=== PATIENT | male | born 1945 | race Caucasian/White ===

== ENCOUNTER → 2021-01-02 10:49 | Outpatient (BNVA) | payer MEDICARE, SELFPAY | PROVIDERS: Visit Provider Family Medicine | DX: E11.9 Type 2 diabetes mellitus without complications (principal); I50.9 Heart failure, unspecified; I10 Essential (primary) hypertension; R60.0 Localized edema; Z13.220 Encounter for screening for lipoid disorders; Z13.6 Encounter for screening for cardiovascular disorders; J44.9 Chronic obstructive pulmonary disease, unspecified | CPT/HCPCS: 80053; 80061; 83036; 83880; 85025 ==

== ENCOUNTER 2021-01-08 06:00 | Outpatient (RCR) | payer MEDICARE, SELFPAY | END 2021-01-24 23:59 | disposition home or self-care (01) | LOC: MOT 06:00 | PROVIDERS: Referring Provider Family Medicine; Visit Provider Family Medicine | DX: I50.9 Heart failure, unspecified (principal); R60.0 Localized edema | CPT/HCPCS: 97140; 97166 ==

== ENCOUNTER 2021-01-25 06:00 | Outpatient (RCR) | payer MEDICARE, SELFPAY | END 2021-02-24 23:59 | disposition home or self-care (01) | LOC: MOT 06:00 | PROVIDERS: Referring Provider Family Medicine; Visit Provider Family Medicine | DX: I50.9 Heart failure, unspecified (principal); R60.0 Localized edema | CPT/HCPCS: 97140 ==

== ENCOUNTER 2021-02-25 06:00 | Outpatient (RCR) | payer MEDICARE, SELFPAY | END 2021-03-26 23:59 | disposition home or self-care (01) | LOC: MOT 06:00 | PROVIDERS: Referring Provider Family Medicine; Visit Provider Family Medicine | DX: I50.9 Heart failure, unspecified (principal); R60.0 Localized edema | CPT/HCPCS: 97140 ==

== ENCOUNTER → 2021-04-02 13:40 | Outpatient (BNVA) | payer MEDICARE, SELFPAY | PROVIDERS: PCP Family Medicine; Visit Provider Family Medicine | DX: E11.59 Type 2 diabetes mellitus with other circulatory complications (principal); I10 Essential (primary) hypertension; I50.9 Heart failure, unspecified; N18.31 Chronic kidney disease, stage 3a; Z68.41 Body mass index [BMI] 40.0-44.9, adult | CPT/HCPCS: 80053; 83036 ==

== ENCOUNTER → 2021-05-08 09:59 | Outpatient (BNVA) | payer MEDICARE, SELFPAY | PROVIDERS: PCP Family Medicine; Visit Provider Internal Medicine Cardiovascular Disease | DX: R06.00 Dyspnea, unspecified (principal); E78.1 Pure hyperglyceridemia; N18.31 Chronic kidney disease, stage 3a; E11.59 Type 2 diabetes mellitus with other circulatory complications; I13.0 Hypertensive heart and chronic kidney disease with heart failure and stage 1 through stage 4 chronic kidney disease, or unspecified chronic kidney disease; E11.22 Type 2 diabetes mellitus with diabetic chronic kidney disease; I50.9 Heart failure, unspecified | CPT/HCPCS: 80053; 80061; 83735; 83880 ==

== ENCOUNTER 2021-06-12 09:54 | Outpatient (CLI) | payer MEDICARE, SELFPAY ==
--- NOTE | 2021-06-12 10:03 | ECG_ITS ---
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 Interpretive Statements SinusNAME OF STUDY: LEXISCAN SESTAMIBI STRESS TEST INDICATION: Chest Pain; Shortness of Breath PROCEDURE: At the baseline, the blood pressure was 123/79 mmHg with a heart rate of 72 bpm. The electrocardiogram showed rhythm with frequent PACs. Left axis deviation. Incomplete right bundle branch block. The Lexiscan was infused over a period of 20 seconds. A total of 0.4 milligrams of Lexiscan was infused. The stress phase was continued for a total of 5 minutes. Heart rate at the end of the stress phase was 86 bpm with a blood pressure of 134/70 mmHg. The EKG at the peak infusion revealed sinus rhythm with frequent PACs and runs of SVT. The study was terminated due to protocol completion. Sestamibi was injected 20 seconds after the Lexiscan infusion. Blood pressure at the end of the recovery phase was 119/71 mmHg with a heart rate of 89 beats per minute. CONCLUSION: 1. No significant EKG changes with the LexiScan infusion. 2. No LexiScan induced chest pain or cardiac arrhythmia. 3. Normal blood pressure and heart rate response. 4. Sestamibi/sestamibi perfusion scan pending; see separate report. Electronically Signed On 06-16-2021 13:00:24 CDT by Tiara Huertas M.D. [id number]
--- NOTE | 2021-06-12 10:03 | NMCV_ITS ---
NM sierra perf SPECT r/s* [id number] Ravi Mi Age: 75 Gender: M : 1945 Exam Date: 06/12/2021 11:15 Ordering Phys: Tiara Huertas MD ([email or web address]) Technologist: KAYKAY Nieves Exam Location: [facility] Indications: SHORTNESS OF BREATH STRESS TEST [facility] IMAGE PROTOCOL Rest/Stress 1 Lexiscan Day Radiopharmaceutical Dose (mCi) Administration Site Administered by Rest: Tc-99m 10.5 IV KAYKAY Nieves Sestamibi Stress:Tc-99m 33.0 IV KAYKAY Xiao Sestamibi Rest: 12-Jun-2021 60 Discovery 630 Stress: 12-Jun-2021 30 Discovery 630 0.4mg Lexiscan. Images obtained in supine and prone position. SPECT RESULTS Technical Quality: Excellent Raw Data Analysis: Normal Image Corrections: No attenuation or motion correction applied Summed Stress Score: 13 Summed Rest Score: 15 Summed Difference Score: 0 PERFUSION FINDINGS Large sized perfusion abnormality of severe severity of basal to apical inferior, mid inferolateral, apical lateral and apical septal wall on rest and supine stress images. There is somewhat improved tracer uptake in inferior and inferolateral mccall on stress of prone stress images. FUNCTIONAL RESULTS (calculated via Gated SPECT) Stress Image LV EF (%): 66 Stress EDV (mL):113 TID: 0.84 Stress ESV (mL):38 FUNCTIONAL FINDINGS: The left ventricle is normal in size. Transient Ischemia Dilatation of 0.84. There is normal left ventricular systolic function. The left ventricular ejection fraction is normal with a value of 66%. There is normal left ventricular wall thickening with no regional wall motion abnormality. Normal end-diastolic end-systolic volumes. IMPRESSIONS 1. Large sized fixed perfusion abnormality of severe severity of basal to apical inferior, mid inferolateral, apical lateral and apical septal mccall. 2. This is suggestive of old myocardial infarction in right coronary artery/circumflex artery territory with no significant rodrigo-infarct ischemia or attenuation artifact. 3. Overall left ventricular systolic function is normal without regional wall motion abnormalities. 4. The left ventricular ejection fraction is normal with a value of 66%. 5. No prior similar studies to compare. Tiara Huertas MD (Electronically Signed) Final Date: 16 June 2021 12:52 S
--- NOTE | 2021-06-12 10:08 | USCV_ITS ---
Ravi Mi Age: 75 Gender: M : 1945 Exam Date: 06/12/2021 10:44 Ordering Phys: Tiara Huertas MD ([email or web address]) Technologist: KISHOR [place] [facility] [place]: DYSPNEA BP: 140 / 90 HR: 87 Rhythm: Other Technical Quality: Technically difficult study MEASUREMENTS (Male / Female) Normal Values 2D ECHO LVOT Diameter 2.6 cm LV Ejection Fraction MOD 2C 41.3 % LV Ejection Fraction 2C AL 40.1 % LA Diameter 3.7 cm LA Width 3.9 cm LA Height 5.1 cm RA Width 4.2 cm RA Height 4.5 cm Aorta at Sinotubular Diameter 3.0 cm DOPPLER AV Peak Velocity 126.0 cm/s LVOT Peak Velocity 110.0 cm/s AV Area Cont Eq vti 4.1 cm squared AV Area Cont Eq pk 4.7 cm squared MV Area PHT 3.1 cm squared Mitral E to A Ratio 0.6 MV E' Velocity 24.5 cm/s Mitral E to MV E' Ratio 6.7 Mitral E to LV E' Lateral Ratio 5.7 Mitral E to LV E' Septal Ratio 8.2 TR Peak Velocity 118.0 cm/s TR Peak Gradient 5.6 mmHg RV Acceleration Time 0.1 s RV Ejection Time 0.2 s RV AcT/ET 0.3 FINDINGS Left Ventricle Possibly normal LV size and ejection fraction of around 55% (visual). Studies are suboptimal quality because of poor ultrasonic window.Grade I/IV diastolic dysfunction (abnormal relaxation filling pattern), normal to mildly elevated filling pressures. Right Ventricle Mildly dilated with a normal ejection fraction. Right Atrium Mildly dilated Left Atrium Possibly of normal size Mitral Valve No gross abnormalities noted Aortic Valve Thickened aortic valve. Tricuspid Valve No gross abnormalities noted Pulmonic Valve Pulmonic valve not well visualized. Pericardium Normal pericardium without effusion. Aorta Normal ascending aorta dimension. CONCLUSIONS Possibly normal LV size and ejection fraction of around 55% (visual). Grade I/IV diastolic dysfunction (abnormal relaxation filling pattern), normal to mildly elevated filling pressures. Thickened aortic valve. Mildly dilated right atrium and right ventricle. There is no pericardial effusion. Technically difficult study because of the poor ultrasonic window. Dr Nickolas Zeng MD FACC (Electronically Signed) Final Date: 13 June 2021 11:56 S
[2021-06-12 10:15] VITALS: BMI 43.4
[2021-06-12] MEDS: perflutren protein-a microsphr 0.22 mg/mL SDV 3 mL IV (11:36)
[2021-06-12] MEDS: regadenoson 0.4 Mg/5 ml Syringe IVP (11:48)
[2021-06-12 12:10] VITALS: BP 119/87; PULSE 72
== END 2021-06-12 09:55 | disposition home or self-care (01) ==
LOC: RAD 10:02 → CDL 10:02
PROVIDERS: PCP Family Medicine; Visit Provider Internal Medicine Cardiovascular Disease
DX: R06.00 Dyspnea, unspecified (principal); I50.9 Heart failure, unspecified; R07.9 Chest pain, unspecified; R06.02 Shortness of breath; R94.39 Abnormal result of other cardiovascular function study; I35.8 Other nonrheumatic aortic valve disorders
CPT/HCPCS: 78452; 93017; A9500; C8929; J2785; Q9956

== ENCOUNTER → 2021-12-04 09:22 | Outpatient (BNVA) | payer MEDICARE, SELFPAY | PROVIDERS: PCP Family Medicine; Visit Provider Family Medicine | DX: I10 Essential (primary) hypertension (principal); E11.59 Type 2 diabetes mellitus with other circulatory complications | CPT/HCPCS: 80053; 83036 ==

== ENCOUNTER → 2022-04-13 10:25 | Outpatient (BNVA) | payer MEDICARE, SELFPAY | PROVIDERS: PCP Family Medicine; Visit Provider Internal Medicine | DX: N18.9 Chronic kidney disease, unspecified (principal); E55.9 Vitamin D deficiency, unspecified | CPT/HCPCS: 80069; 82310; 82570; 82652; 83970; 84156; 85025 ==

== ENCOUNTER → 2022-05-06 09:41 | Outpatient (BNVA) | payer MEDICARE, SELFPAY | PROVIDERS: PCP Family Medicine; Visit Provider Family Medicine | DX: N18.31 Chronic kidney disease, stage 3a (principal); I10 Essential (primary) hypertension; E78.1 Pure hyperglyceridemia; E11.9 Type 2 diabetes mellitus without complications; E11.59 Type 2 diabetes mellitus with other circulatory complications; E11.40 Type 2 diabetes mellitus with diabetic neuropathy, unspecified; L84 Corns and callosities; I50.9 Heart failure, unspecified | CPT/HCPCS: 80048; 80061; 83036; 83735 ==

== ENCOUNTER → 2022-07-10 10:08 | Outpatient (BNVA) | payer MEDICARE, SELFPAY | PROVIDERS: PCP Family Medicine; Referring Provider Family Medicine; Visit Provider Podiatrist Foot & Ankle Surgery | DX: E11.40 Type 2 diabetes mellitus with diabetic neuropathy, unspecified (principal); E11.59 Type 2 diabetes mellitus with other circulatory complications; R60.0 Localized edema; B35.1 Tinea unguium; M20.41 Other hammer toe(s) (acquired), right foot; M20.42 Other hammer toe(s) (acquired), left foot; L60.1 Onycholysis | CPT/HCPCS: 11721; 99204 ==

== ENCOUNTER → 2022-07-28 11:31 | Outpatient (BNVA) | payer MEDICARE, SELFPAY | PROVIDERS: PCP Family Medicine; Visit Provider Family Medicine | DX: K92.1 Melena (principal); E11.9 Type 2 diabetes mellitus without complications; E11.59 Type 2 diabetes mellitus with other circulatory complications; I10 Essential (primary) hypertension; J44.9 Chronic obstructive pulmonary disease, unspecified; L98.429 Non-pressure chronic ulcer of back with unspecified severity; N18.31 Chronic kidney disease, stage 3a; I50.9 Heart failure, unspecified; A09 Infectious gastroenteritis and colitis, unspecified | CPT/HCPCS: 80053; 83036; 85025 ==

== ENCOUNTER → 2022-07-30 11:21 | Outpatient (BNVA) | payer MEDICARE, SELFPAY | PROVIDERS: PCP Family Medicine; Visit Provider Family Medicine | DX: K92.1 Melena (principal); A09 Infectious gastroenteritis and colitis, unspecified | CPT/HCPCS: 85018; 87493; 87506 ==

== ENCOUNTER → 2022-08-13 12:05 | Outpatient (BNVA) | payer MEDICARE, SELFPAY | PROVIDERS: PCP Family Medicine; Visit Provider Family Medicine | DX: E11.59 Type 2 diabetes mellitus with other circulatory complications (principal); N18.31 Chronic kidney disease, stage 3a; I10 Essential (primary) hypertension; A09 Infectious gastroenteritis and colitis, unspecified; I50.9 Heart failure, unspecified; Z09 Encounter for follow-up examination after completed treatment for conditions other than malignant neoplasm | CPT/HCPCS: 80048; 83735; 84100 ==

== ENCOUNTER → 2022-11-26 09:23 | Outpatient (BNVA) | payer MEDICARE, SELFPAY | PROVIDERS: PCP Family Medicine; Visit Provider Family Medicine | DX: E11.59 Type 2 diabetes mellitus with other circulatory complications (principal); E11.9 Type 2 diabetes mellitus without complications; I50.9 Heart failure, unspecified; I10 Essential (primary) hypertension; J44.9 Chronic obstructive pulmonary disease, unspecified; N18.31 Chronic kidney disease, stage 3a | CPT/HCPCS: 80053; 83036; 85025 ==

== ENCOUNTER → 2023-04-02 10:07 | Outpatient (BNVA) | payer MEDICARE, SELFPAY | PROVIDERS: PCP Family Medicine; Visit Provider Internal Medicine | DX: N18.9 Chronic kidney disease, unspecified (principal) | CPT/HCPCS: 80069; 82043; 82310; 83970; 85025 ==

== ENCOUNTER → 2023-05-03 10:35 | Outpatient (BNVA) | payer MEDICARE, SELFPAY | PROVIDERS: PCP Family Medicine; Visit Provider Family Medicine | DX: E78.1 Pure hyperglyceridemia (principal); E11.59 Type 2 diabetes mellitus with other circulatory complications | CPT/HCPCS: 80061; 83036 ==

== ENCOUNTER → 2023-06-07 15:41 | Outpatient (BNVA) | payer MEDICARE, SELFPAY | PROVIDERS: PCP Family Medicine; Visit Provider Family Medicine | DX: N18.9 Chronic kidney disease, unspecified (principal); R39.9 Unspecified symptoms and signs involving the genitourinary system | CPT/HCPCS: 81000; 87077; 87086; 87184 ==

== ENCOUNTER → 2023-06-17 10:19 | Outpatient (BNVA) | payer MEDICARE, SELFPAY | PROVIDERS: PCP Family Medicine; Referring Provider Internal Medicine Cardiovascular Disease; Visit Provider Internal Medicine Cardiovascular Disease | DX: I50.9 Heart failure, unspecified (principal); N18.9 Chronic kidney disease, unspecified; R06.02 Shortness of breath; R06.00 Dyspnea, unspecified; I13.0 Hypertensive heart and chronic kidney disease with heart failure and stage 1 through stage 4 chronic kidney disease, or unspecified chronic kidney disease | CPT/HCPCS: 80048; 83735; 83880 ==

== ENCOUNTER 2023-06-25 09:15 | Outpatient (CLI) | payer MEDICARE, SELFPAY ==
[2023-06-25 09:36] VITALS: BMI 40.4
--- NOTE | 2023-06-25 09:40 | ECG_ITS ---
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 Interpretive Statements NAME OF STUDY: LEXISCAN SESTAMIBI STRESS TEST INDICATION: Shortness of Breath on exertion PROCEDURE: At the baseline, the blood pressure was 137 over 74 mmHg, oxygen saturation 98% with a heart rate of 50 bpm. The electrocardiogram showed sinus rhythm with first-degree AV block with frequent PACs and right bundle branch block. The Lexiscan was infused over a period of 20 seconds. A total of 0.4 milligrams of Lexiscan was infused. The stress phase was continued for a total of 5 minutes. Heart rate at the end of the stress phase was 74 bpm with a blood pressure 130/66 mmHg. The EKG at the peak infusion revealed no significant ST-T wave change. Study was terminated due to protocol completion. Sestamibi was injected 20 seconds after the Lexiscan infusion. Blood pressure at the end of the recovery phase was 127/64 mmHg with a heart rate of 73 beats per minute. CONCLUSION: 1. No significant EKG changes with the LexiScan infusion. 2. No LexiScan induced chest pain or cardiac arrhythmia. 3. Normal blood pressure and heart rate response. 4. Sestamibi/sestamibi perfusion scan pending; see separate report. Electronically Signed On 07-05-2023 17:28:33 CDT by Tiara Huertas M.D. [id number]
--- NOTE | 2023-06-25 09:41 | NMCV_ITS ---
NM sierra perf SPECT r/s* [id number] Ravi Mi Age: 77 Gender: M : 1945 Exam Date: 06/25/2023 09:41 Ordering Phys: Tiara Huertas MD ([email or web address]) Technologist: KAYKAY Nieves Exam Location: [facility] Indications: SHORTNESS OF BREATH ON EXERTION, HEART FAILURE STRESS TEST Please see separate stress test report in [facility] for full findings IMAGE PROTOCOL Rest/Stress 1 Lexiscan Day Radiopharmaceutical Dose (mCi) Administration Site Administered by Rest: Tc-99m 10.7 IV KAYKAY High Sestamibi Stress:Tc-99m 33.0 IV KAYKAY Nieves Sestamibi Rest: 25-Jun-2023 60 Discovery 630 Stress: 25-Jun-2023 30 Discovery 630 0.4mg Lexiscan. Images obtained in supine and prone position. SPECT RESULTS Technical Quality: Excellent Raw Data Analysis: Normal Image Corrections: No attenuation or motion correction applied Summed Stress Score: 14 Summed Rest Score: 7 Summed Difference Score: 7 PERFUSION FINDINGS Medium to large sized perfusion abnormality of moderate severity of basal to apical inferior, basal to mid inferolateral, apical lateral and apical mccall with mild reversibility on stress images. FUNCTIONAL RESULTS (calculated via Gated SPECT) Stress Image LV EF (%): 52 Stress EDV (mL):127 TID: 1.02 Stress ESV (mL):61 FUNCTIONAL FINDINGS: The left ventricle is normal in size. Transient Ischemia Dilatation of 1. The left ventricular ejection fraction is low normal with a value of 52%. There is hypokinesis of mid to apical inferior and apical lateral mccall. IMPRESSIONS 1. Medium to large sized partially reversible perfusion abnormality of moderate severity of basal to apical inferior, basal to mid inferolateral, apical lateral and apical mccall. 2. This may represent old myocardial infarction in right coronary artery/circumflex artery territory with mild rodrigo-infarct ischemia. 3. The left ventricular ejection fraction is low normal with a value of 52%. 4. There is hypokinesis of mid to apical inferior and apical lateral mccall. 5. EKG portion of the study will be reported separately. Tiara Huertas MD (Electronically Signed) Final Date: 30 June 2023 14:00 S
[2023-06-25] MEDS: regadenoson 0.4 Mg/5 ml Syringe IVP (11:03)
[2023-06-25 12:42] VITALS: BP 127/64; PULSE 66
== END 2023-06-25 09:16 | disposition home or self-care (01) ==
PROVIDERS: PCP Family Medicine; Visit Provider Internal Medicine Cardiovascular Disease
DX: R06.02 Shortness of breath (principal)
CPT/HCPCS: 36415; 78452; 93017; 96374; A9500; J2785

== ENCOUNTER → 2023-08-16 08:51 | Outpatient (BNVA) | payer MEDICARE, SELFPAY | PROVIDERS: PCP Family Medicine; Visit Provider Family Medicine | DX: N18.9 Chronic kidney disease, unspecified (principal); E11.22 Type 2 diabetes mellitus with diabetic chronic kidney disease | CPT/HCPCS: 80048; 81003; 83036 ==

== ENCOUNTER → 2023-11-16 08:53 | Outpatient (BNVA) | payer MEDICARE, SELFPAY | PROVIDERS: PCP Family Medicine; Visit Provider Family Medicine | DX: R53.83 Other fatigue (principal); E11.40 Type 2 diabetes mellitus with diabetic neuropathy, unspecified; E11.22 Type 2 diabetes mellitus with diabetic chronic kidney disease; N18.31 Chronic kidney disease, stage 3a | CPT/HCPCS: 80053; 83036; 84443; 85025 ==

== ENCOUNTER → 2024-02-14 11:03 | Outpatient (BNVA) | payer MEDICARE, SELFPAY | PROVIDERS: PCP Family Medicine; Visit Provider Family Medicine | DX: I50.9 Heart failure, unspecified (principal); R05.9 Cough, unspecified; I10 Essential (primary) hypertension; E11.59 Type 2 diabetes mellitus with other circulatory complications; E11.9 Type 2 diabetes mellitus without complications; J98.11 Atelectasis | CPT/HCPCS: 71046; 80053; 83036; 83880 ==

== ENCOUNTER → 2024-05-01 10:09 | Outpatient (BNVA) | payer MEDICARE, SELFPAY | PROVIDERS: PCP Family Medicine; Visit Provider Family Medicine | DX: I10 Essential (primary) hypertension (principal); I50.9 Heart failure, unspecified; E78.1 Pure hyperglyceridemia; E11.59 Type 2 diabetes mellitus with other circulatory complications; E11.9 Type 2 diabetes mellitus without complications; N18.31 Chronic kidney disease, stage 3a; R06.00 Dyspnea, unspecified; N52.8 Other male erectile dysfunction | CPT/HCPCS: 80048; 80061; 83036 ==

== ENCOUNTER → 2024-06-29 09:54 | Outpatient (BNVA) | payer MEDICARE, SELFPAY | PROVIDERS: PCP Family Medicine; Referring Provider Nurse Practitioner; Visit Provider Nurse Practitioner | DX: S49.91XA Unspecified injury of right shoulder and upper arm, initial encounter (principal); M19.011 Primary osteoarthritis, right shoulder; W19.XXXA Unspecified fall, initial encounter | CPT/HCPCS: 73030 ==

== ENCOUNTER → 2024-07-03 13:23 | Outpatient (BNVA) | payer MEDICARE, SELFPAY | PROVIDERS: PCP Family Medicine; Visit Provider Nurse Practitioner | DX: S46.811A Strain of other muscles, fascia and tendons at shoulder and upper arm level, right arm, initial encounter (principal); W19.XXXA Unspecified fall, initial encounter; M19.011 Primary osteoarthritis, right shoulder | CPT/HCPCS: 73030; 99204 ==

== ENCOUNTER → 2024-10-26 08:50 | Outpatient (BNVA) | payer MEDICARE, SELFPAY | PROVIDERS: PCP Family Medicine; Visit Provider Family Medicine | DX: I10 Essential (primary) hypertension (principal); E11.59 Type 2 diabetes mellitus with other circulatory complications | CPT/HCPCS: 80053; 83036 ==

== ENCOUNTER 2024-11-24 11:51 | Inpatient (IN) | payer MEDICARE, SELFPAY ==
[2024-11-24] VITALS (9 sets, daily range): BP systolic 104–123; BP diastolic 51–76; PULSE 60–86; RESP 16–20; TEMP 36.5–36.6; O2SAT 93–98; BMI 40.4; BMI 37.5
--- NOTE | 2024-11-24 12:21 | ECG_ITS ---
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 Measurements Intervals [place] Rate: 83 P: 0 NV: 0 QRS: -79 QRSD: 170 T: 69 QT: 430 QTc: 507 Interpretive Statements ATRIAL FIBRILLATION WITH ABERRANT CONDUCTION OR VENTRICULAR PREMATURE COMPLEXES RIGHT BUNDLE BRANCH BLOCK [120+ ms QRS DURATION, UPRIGHT V1, 40+ ms S IN I/aVL/V4/V5/V6] LEFT ANTERIOR FASCICULAR BLOCK [QRS AXIS <= -45, QR IN I, RS IN II] POSSIBLE ANTERIOR MYOCARDIAL INFARCTION , OF INDETERMINATE AGE [30 ms Q WAVE IN V3/V4, OR R < 0.2 mV IN V4] No previous ECG available for comparison Electronically Signed On 11-25-2024 07:43:52 HOT MIX OPERATOR by Sony Montague M.D. [id number]
--- NOTE | 2024-11-24 12:21 | XR_ITS ---
WS: [id number] Portable AP upright chest, 11/24/2024 Clinical Data: chest pain Comparison: Two-view chest, 02/14/2024 Findings: No nodules, masses or effusions are seen. The heart is normal. The pulmonary vascularity is not increased. No pneumonia or pneumothorax is seen. The aortic arch and descending thoracic aorta show tortuosity. Monitor leads are on the chest wall. There is an electronic device overlying the left shoulder. XR/XR chest 1V portable [id number] Impression: Atherosclerosis.
[2024-11-24] MEDS: morphine 4 mg/mL SDV 1 mL 2 MG IVP (12:45)
[2024-11-24] MEDS: ondansetron 2 mg/ML SDV 2 mL 4 MG IVP (12:46)
[2024-11-24 13:44] LABS: Basophils % 0.3 %; Eosinophils # 0.1 10^3/uL (0.0-0.8); Eosinophils % 0.6 %; Hematocrit 44.5 % (37-53); Lymphocytes # 1.2 10^3/uL (0.8-4.8); Lymphocytes % 11.9 %; Mean Corpuscular HGB Conc 32.8 g/dL (30-55); Mean Corpuscular Hemoglobin 30.2 pg (27-33); Mean Corpuscular Volume 91.9 fl (82-101); Mean Platelet Volume 10.9 fL (7.4-10.4); Monocytes # 0.6 10^3/uL (0.2-0.9); Monocytes % 6.2 %; Neutrophils # 7.95 10^3/uL (1.8-7.7); Neutrophils % 80.6 %; Nucleated Red Blood Cells % 0 %; Platelet Count 181 10^3/cmm (157-399); Red Blood Count 4.84 10^6/uL (3.85-5.65); White Blood Count 9.86 10^3/uL (3.29-11.43)
--- NOTE | 2024-11-24 13:59 | ECG_ITS ---
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 Measurements Intervals [place] Rate: 73 P: -82 DE: 131 QRS: -61 QRSD: 153 T: 72 QT: 438 QTc: 485 Interpretive Statements ATRIAL FIBRILLATION WITH OCCASIONAL VENTRICULAR PREMATURE COMPLEXES WITH OCCASIONAL SUPRAVENTRICULAR PREMATURE COMPLEXES INTRAVENTRICULAR CONDUCTION DELAY [130+ ms QRS DURATION] INTERPRETATION BASED ON A DEFAULT AGE OF 40 YEARS Compared to ECG 11/24/2024 11:54:00 Junctional rhythm now present Intraventricular conduction delay now present Atrial fibrillation no longer present Aberrant conduction of supraventricular beat(s) no longer present Right bundle-branch block no longer present Left anterior fascicular block no longer present Myocardial infarct finding no longer present Electronically Signed On 11-25-2024 08:17:04 TRUCK 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 [id number]
--- NOTE | 2024-11-24 14:09 | PC.NURSE ---
PATIENT MONITOR ALARMED WITH A RUN OF V-TACH. IMMEDIATELY RAN EKG ON PATIENT. PATIENT REPORTS HAVING A MOMENT OF CHEST PAIN RIGHT BEFORE I ENTERED THE ROOM. PROVIDER NOTIFIED AND VERBALIZED UNDERSTANDING.
[2024-11-24 14:14] LABS: Troponin(5th) Baseline 53 ng/L (0-15)
[2024-11-24 14:19] LABS: Alanine Aminotransferase 11 U/L (0-41); Albumin Level 3.9 g/dL (3.5-5.2); Alkaline Phosphatase 143 U/L (40-130); Anion Gap 17.2 (5-19); Aspartate Amino Transferase 8 U/L (0-40); Blood Urea Nitrogen 60 mg/dL (8-23); Calcium 9.3 mg/dL (8.5-10.5); Carbon Dioxide 31 mmol/L (22-29); Chloride 89 mmol/L (98-107); Creatinine Clr Calc Pharmacy 38.8083; Globulin 2.9 g/dL (1.3-4.6); Glucose 320 mg/dL (65-115); NT Pro B Type Natriuretic Pept 414 pg/mL (0-450); Osmolality Calculated 307 mOsm/kg (285-295); Potassium 3.2 mmol/L (3.5-5.1); Sodium 134 mmol/L (136-145); Total Bilirubin 0.5 mg/dL (0.15-1.2); Total Protein 6.8 g/dL (6.6-8.7)
--- NOTE | 2024-11-24 15:17 | ED_ITS ---
HPI - Chest Pain 2 General: Chief Complaint: Chest Pain Stated Complaint: SOB, chest pain Time Seen by Provider: 11/24/24 11:52 History of Present Illness: This patient is an 79-year-old white male who presents to the emergency department stating that he has had chest pains for the past 3 hours. Currently rates the pain a 3 on a scale of 1-10. He does have shortness of breath but he states that is chronic secondary to chronic lung disease. He has not had any nausea, vomiting or diarrhea. Patient states he does have atrial fibrillation. States he is never been diagnosed with coronary artery disease. Associated symptoms: Reports dyspnea Related Data Home Medications ?Medication ?Instructions ?Recorded ?Confirmed aspirin 81 mg chewable tablet 81 mg PO DAILY 01/02/21 11/24/24 [id number] acid-vit 1 tab PO DAILY 1 11/24/24 K-lycop 400 mcg-20 mcg-370 mcg tablet (Men's 50 Plus Multivitamin) nitroglycerin 0.4 mg sublingual 0.4 mg sublingual Q5M PRN Chest 05/08/21 11/24/24 tablet Pain cholecalciferol (vitamin D3) 25 25 mcg PO DAILY 11/24/24 mcg (1,000 unit) tablet (Vitamin D3) furosemide 40 mg tablet See Rx Instructions .Route . COMPLEX 11/24/24 11/24/24 Previous Rx's ?Medication ?Instructions ?Recorded alcohol swabs 1 pad topical DIRECTED #2 00 10/26/24 blood sugar diagnostic (Blood #200 10/26/24 Glucose Test strips) blood-glucose meter (Blood Glucose #1 10/26/24 Monitoring kit) empagliflozin 25 mg tablet 25 mg PO DAILY 90 days #90 tabs 10/26/24 glimepiride 4 mg tablet 4 mg PO BID 90 days #180 tab s 10/26/24 hydrochlorothiazide 25 mg tablet 25 mg PO QAM 90 days #90 tabs 10/26/24 lancets #100 ea 10/26/24 metformin 1,000 mg tablet 1,000 mg PO BID 90 days #180 tabs 10/26/24 potassium chloride 8 mEq 8 meq PO DAILY 90 days #90 t abs 10/26/24 tablet,extended release Allergies Allergy/AdvReac Type Severity Reaction Status Date / Time prednisone Allergy unk Verified 10/26/24 08:33 Tetracyclines Allergy ALGY-Redness Verified 11/24/24 14:06 of Skin Review of Systems 2 General: Reports: 10 or more systems reviewed and unremarkable except in HPI and below Card: Reports: chest pain Resp: Reports: dyspnea PFSH ED 2 PFSH: Medical History Primary osteoarthritis, right shoulder Strain of right trapezius muscle Hyperlipidemia Erectile dysfunction Pedal edema CHF (congestive heart failure) Hypertension Metoprolol and lisinopril DC due to low BP. Asthma Type 2 diabetes mellitus Surgical History History of arthroscopic knee surgery Right History of eye surgery Social History Smoking and tobacco/nicotine status: never used tobacco/nicotine Alcohol intake: never Substance/Drug Use: never Physical Exam 2 Const: COMMON NORMALS: no acute distress, patient oriented x3 and no limitations GENERAL APPEARANCE: cooperative and comfortable HENMT: COMMON NORMALS: normocephalic, atraumatic, Normal nasal mucous membranes and turbinates present, moist oral mucous membranes and oropharynx normal HEAD & SCALP: normal to inspection, normocephalic and atraumatic F VINCENZO & SINUS: normal facial exam NOSE: Normal nasal mucous membranes and turbinates present Eye: COMMON NORMALS: Equal, round and reactive pupils present, EOMs intact bilaterally and conjunctivae normal GENERAL EYE: appearance normal, both eyes and all related structures CONJUNCTIVA: Yes conjunctivae normal PUPIL: Yes Equal, round and reactive pupils present Neck/C-Spine: COMMON NORMALS: supple and no JVD Chest: COMMONS NORMALS: normal inspection of the chest Resp: COMMON NORMALS: normal respiratory effort and clear to auscultation bilaterally AUSCULTATION: clear to auscultation bilaterally Cardio: COMMON NORMALS: no JVD and regular rate RATE: regular rate R HYTHM: abnormal rhythm GI: COMMON NORMALS: Normal to inspection, nondistended, normoactive bowel sounds present, Soft to palpation and non-tender AUSCULTATION: Yes normoactive bowel sounds PALPATION: Yes Soft to palpation : COMMON NORMALS: Yes no CVA tenderness BLADDER/KIDNEY EXAM: Yes no CVA tenderness Back/Pelvis: COMMON NORMALS: no CVA tenderness and thoracic and lumbar spine normal to inspection Extremity: COMMON NORMALS: normal to inspection Neuro: COMMON NORMALS: patient oriented x3 and CN's II-XII intact bilaterally Psych: COMMON NORMALS: mental status grossly normal, Normal thought process present and cooperative THOUGHT PROCESS: Normal thought process present Skin: COMMON NORMALS: no rashes or lesions noted, turgor normal and no jaundice GENERAL SKIN EXAM: no rashes or lesions noted and turgor normal Course 2 Vital Signs: Vital signs: Vital Signs Temperature 97.9 F 11/24/24 11:52 Pulse Rate 77 11/24/24 14:05 Respiratory Rate 16 11/24/24 12:45 Blood Pressure 108/67 11/24/24 14:05 Pulse Oximetry 93 11/24/24 14:05 Oxygen Delivery Me thod Room Air 11/24/24 14:05 MDM - Chest Pain Medical Decision Making EKG revealed atrial fibrillation with a ventricular rate of 83. There is a right bundle branch block. Chest x-ray was normal. CBC normal. CMP revealed a BUN of 60 creatinine of 2.1. Blood sugar was 320. Baseline troponin was 53. BNP was 414. The nurses notified me that the patient did have a short run of V. tach. It does appear the patient had 13 beats of V. tach. Patient was given morphine initially for his pain. He states he tried nitroglycerin at home. The morphine did help. He continues to have some mild discomfort. I discussed this case with Dr. Stephenson, hospitalist. He does want the patient in the cardiac stepdown unit. He would like us to start heparin. He would like me to consult cardiology. I then discussed the case with Dr. Sanchez. Patient will be transferred to the floor shortly. He is stable. Lab Data 11/24/24 13:34 11/24/24 13:34 Radiology Impressions Chest X-Ray 11/24/24 12:21 Impression: Atherosclerosis. Laboratory Results WBC 9.86 10^3/uL (3.29-11.43) 11/24/24 13:34 RBC 4.84 10^6/uL (3.85-5.65) 11/24/24 13:34 Hgb 14.60 g/dL (11.27-16.99) 11/24/24 13:34 Hct 44.5 % (37-53) 11/24/24 13:34 MCV 91.9 fl (82-101) 11/24/24 13:34 MCH 30.2 pg (27-33) 11/24/24 13:34 MCHC 32.8 g/dL (30-55) 11/24/24 13:34 RDW 13.0 % (12.1-15.1) 11/24/24 13:34 Plt Count 181 10^3/cmm (157-399) 11/24/24 13:34 MPV 10.9 fL (7.4-10.4) H 11/24/24 13:34 Neut % (Auto) 80.6 % 11/24/24 13:34 Lymph % (Auto) 11.9 % 11/24/24 13:34 Marion % (Auto) 6.2 % 11/24/24 13:34 Eos % (Auto) 0.6 % 11/24/24 13:34 Baso % (Auto) 0.3 % 11/24/24 13:34 Neut # (Auto) 7.95 10^3/uL (1.8-7.7) H 11/24/24 13:34 Lymph # (Auto) 1.2 10^3/uL (0.8-4.8) 11/24/24 13:34 Marion # (Auto) 0.6 10^3/uL (0.2-0.9) 11/24/24 13:34 Eos # (Auto) 0.1 10^3/uL (0.0-0.8) 11/24/24 13:34 Baso # (Auto) 0.0 10^3/uL (0.0-0.1) 11/24/24 13:34 Nucleated RBC % (auto) 0 % 11/24/24 13:34 Nucleated RBCs # 0.0 /100WBC 11/24/24 13:34 Sodium 134 mmol/L (136-145) L 11/24/24 13:34 Potassium 3.2 mmol/L (3.5-5.1) L 11/24/24 13:34 Chloride 89 mmol/L (98-107) L 11/24/24 13:34 Carbon Dioxide 31 mmol/L (22-29) H 11/24/24 13:34 Anion Gap 17.2 (5-19) 11/24/24 13:34 BUN 60 mg/dL (8-23) H 11/24/24 13:34 Creatinine 2.1 mg/dL (0.7-1.2) H 11/24/24 13:34 GFR Calculation Not Reportable 11/24/24 13:34 Glucose 320 mg/dL (65-115) H 11/24/24 13:34 Calculated Osmolality 307 mOsm/kg (285-295) H 11/24/24 13:34 Calcium 9.3 mg/dL (8.5-10.5) 11/24/24 13:34 Total Bilirubin 0.5 mg/dL (0.15-1.2) 11/24/24 13:34 AST 8 U/L (0-40) 11/24/24 13:34 ALT 11 U/L (0-41) 11/24/24 13:34 Alkaline Phosphatase 143 U/L (40-130) H 11/24/24 13:34 Troponin T Baseline 53 ng/L (0-15) H 11/24/24 13:34 NT-Pro-B Natriuret Pep 414 pg/mL (0-450) 11/24/24 13:34 Total Protein 6.8 g/dL (6.6-8.7) 11/24/24 13:34 Albumin 3.9 g/dL (3.5-5.2) 11/24/24 13:34 Globulin 2.9 g/dL (1.3-4.6) 11/24/24 13:34 All radiology interpretation(s) finalized by discharge Discharge Plan Discharge Patient Disposition: Admitted As Inpatient Clinical Impression: Chest pain Qualifiers: Chest pain type: unspecified Qualified Code(s): R07.9 - Chest pain, unspecified Condition: Stable Coding Level of Care Code ED Oriental Medicine Practitioner for Belgica Fisher
--- NOTE | 2024-11-24 15:28 | USCV_ITS ---
Ravi Mi Age: 79 Gender: M : 1945 Exam Date: 11/24/2024 17:48 Ordering Phys: Hemant Stephenson MD Technologist: Kareem Daly Exam Location: [facility] [place] Indication: sob BP: 108 / 67 HR: 62 Rhythm: Sinus Technical Quality: Adequate MEASUREMENTS (Male / Female) Normal Values 2D ECHO LV Diastolic Diameter PLAX 5.6 cm 4.2 - 5.9 / 3.9 - 5.3 cm IVS Diastolic Thickness 1.3 cm 0.6 - 1.0 / 0.6 - 0.9 cm IVS Systolic Thickness 1.4 cm LVPW Diastolic Thickness 1.9 cm 0.6 - 1.0 / 0.6 - 0.9 cm LVPW Systolic Thickness 1.9 cm LVOT Diameter 2.6 cm LV Ejection Fraction 2D Teich 50.8 % LV Ejection Fraction MOD 4C 41.3 % LV Ejection Fraction MOD 2C 46.8 % LV Ejection Fraction 2C AL 50.2 % LA Diameter 3.8 cm RA Systolic Volume 4C AL 51.0 ml RA Systolic Volume 4C MOD 52.9 ml LA Sys Volume AL 56.7 cm cubed LA Sys Volume Index AL 21.6 cm cubed/m squared Aorta at Sinotubular Diameter 2.6 cm IVC Diameter 1.8 cm M-MODE LA Ao Ratio MM 1.1 AV Cusp Separation MM 1.6 cm DOPPLER AV Peak Velocity 127.0 cm/s LVOT Peak Velocity 94.0 cm/s AV Area Cont Eq vti 3.8 cm squared AV Area Cont Eq pk 3.9 cm squared MV Peak Velocity 80.2 cm/s MV Area PHT 1.9 cm squared Mitral E to A Ratio 0.5 TV Peak Velocity 180.0 cm/s TR Peak Velocity 210.0 cm/s TR Peak Gradient 17.6 mmHg TR Mean Velocity 179.0 cm/s TR Mean Gradient 12.9 mmHg TR Velocity Time Integral 65.9 cm PV Peak Velocity 104.0 cm/s RV Ejection Time 0.2 s FINDINGS Left Ventricle Mild global hypokinesis. LV systolic function mildly reduced with LVEF 45-50%. Grade II diastolic dysfunction. Right Ventricle Normal right ventricular size and systolic function. Right Atrium Normal right atrial size. Left Atrium Normal left atrial size. Mitral Valve Structurally normal mitral valve. Trace mitral valve regurgitation. Aortic Valve Thickened aortic valve. No aortic valve stenosis. Tricuspid Valve Structurally normal tricuspid valve. Trace tricuspid valve regurgitation. TVPG 17 mmHg. Pulmonic Valve Pulmonic valve not well visualized. Trace pulmonary valve regurgitation. Pericardium No pericardial effusion. Aorta Normal size aortic root and proximal ascending aorta. IVC Normal IVC dimension with < 50% respiratory change of the inferior vena cava. CONCLUSIONS Mild global hypokinesis. Mildly reduced LV systolic function, LVEF estimated 47%. Mild mitral regurgitation. No other significant valvular abnormality noted. Normal size RV and RV systolic function. Normal RV and pulmonary pressures. Poncho Sanchez MD (Electronically Signed) Final Date: 25 November 2024 09:12 S
[2024-11-24] MEDS: heparin 5,000 unit/mL INJ 1 mL IVP (15:34)
[2024-11-24] MEDS: heparin drip 25,000 UNIT/500 ML PREMIX 38 UNIT IV (15:35)
--- NOTE | 2024-11-24 15:43 | P.HP_ITS ---
Providers/Chief Complaint 2 Primary Care Provider: Audra Hillman MD Chief Complaint: SOB, chest pain History of Present Illness Ravi Mi is a 79 year old male with a past medical history of type 2 diabetes, history of CAD, hypertension hyperlipidemia who presents [facility] for chest pain. Patient advises that he typically ambulates with a cane, denies any shortness of breath, no lower extremity edema, he reports that today he developed substernal chest pain, no diaphoresis, no nausea, no vomiting, it radiated to the back, no lightheadedness, no dizziness, currently chest pain 3 out of 10, patient had a nonsustained V. tach episode in the emergency room, relatively asymptomatic, Review of Systems 2 Const: Denies: fever(s) or chills Card: Reports: chest pain Resp: Denies: dyspnea GI: Denies: abdominal pain Medications/Allergies Home Medications ?Medication ?Instructions ?Recorded ?Confirmed ?Last Taken ?Type aspirin 81 mg chewable tablet 81 mg PO DAILY 01/02/21 11/24/24 11/24/24 History kalncdiouwqm-kne-ithav acid-vit 1 tab PO DAILY 1 11/24/24 11/24/24 History K-lycop 400 mcg-20 mcg-370 mcg tablet (Men's 50 Plus Multivitamin) nitroglycerin 0.4 mg sublingual 0.4 mg sublingual Q5M PRN Chest 05/08/21 11/24/24 Unknown History tablet Pain alcohol swabs 1 pad topical DIRECTED #2 00 ea 10/26/24 11/24/24 11/24/24 Rx blood sugar diagnostic (Blood #200 ea 10/26/24 5 Unknown Rx Glucose Test strips) blood-glucose meter (Blood Glucose #1 10/26/2410/29 Unknown Rx Monitoring kit) empagliflozin 25 mg tablet 25 mg PO DAILY 90 days #90 tabs 10/26/24 11/24/24 11/24/24 Rx glimepiride 4 mg tablet 4 mg PO BID 90 days #180 tab s 10/26/24 11/24/24 11/24/24 Rx hydrochlorothiazide 25 mg tablet 25 mg PO QAM 90 days #90 tabs 10/26/24 11/24/24 11/24/24 Rx lancets #100 ea 10/26/24 11/24/24 Un known Rx metformin 1,000 mg tablet 1,000 mg PO BID 90 days #180 tabs 10/26/24 11/24/24 11/24/24 Rx potassium chloride 8 mEq 8 meq PO DAILY 90 days #90 t abs 10/26/24 11/24/24 11/24/24 Rx tablet,extended release cholecalciferol (vitamin D3) 25 25 mcg PO DAILY 11/24/24 11/24/24 History mcg (1,000 unit) tablet (Vitamin D3) furosemide 40 mg tablet See Rx Instructions .Route . COMPLEX 11/24/24 11/24/24 11/24/24 History Allergies Allergy/AdvReac Type Severity Reaction Status Date / Time prednisone Allergy unk Verified 10/26/24 08:33 Tetracyclines Allergy ALGY-Redness Verified 11/24/24 14:06 of Skin PFSH Acute 2 PFSH: Medical History Primary osteoarthritis, right shoulder Strain of right trapezius muscle Hyperlipidemia Erectile dysfunction Pedal edema CHF (congestive heart failure) Hypertension Metoprolol and lisinopril DC due to low BP. Asthma Type 2 diabetes mellitus Surgical History History of arthroscopic knee surgery Right History of eye surgery Social History Smoking and tobacco/nicotine status: never used tobacco/nicotine Alcohol intake: never Substance/Drug Use: never Vitals/I&O/Wt Last Vital Signs Temp 97.9 F 11/24/24 11:52 Pulse 72 11/24/24 15:39 Resp 16 11/24/24 12:45 BP 104/51 11/24/24 15:39 Pulse Ox 97 11/24/24 15:39 O2 Del Method Room Air 11/24/24 15:39 11/24/24 11/24/24 11/24/24 06:59 14:59 22:59 Intake Total 250 / 250 Balance 250 / 250 Weight last 48 hrs Weight 131.542 kg Physical Exam 2 Const: COMMON NORMALS: no acute distress and patient oriented x3 Eye: COMMON NORMALS: Equal, round and reactive pupils present Resp: COMMON NORMALS: normal respiratory effort, No retractions, No use of accessory muscles and clear to auscultation bilaterally AUSCULTATION: clear to auscultation bilaterally Cardio: COMMON NORMALS: no JVD, regular rate, regular rhythm, S1 normal heart sound present and S2 normal heart sound present RATE: regular rate RHYTHM: regular rhythm HEART SOUNDS: S1 normal heart sound present and S2 normal heart sound present GI: COMMON NORMALS: Normal to inspection, nondistended, normoactive bowel sounds present, Soft to palpation and non-tender Extremity: COMMON NORMALS: no pedal edema Neuro: COMMON NORMALS: patient oriented x3, CN's II-XII intact bilaterally and moves all extremities Psych: COMMON NORMALS: mental status grossly normal Data 11/24/24 13:34 11/24/24 13:34 A&P Assessment and plan (1) Hypertension: Qualifiers: Hypertension type: essential hypertension Qualified Code(s): I10 - Essential (primary) hypertension (2) CHF (congestive heart failure): Qualifiers: Heart failure type: other Qualified Code(s): I50.9 - Heart failure, unspecified (3) Chest pain: Qualifiers: Chest pain type: unspecified Qualified Code(s): R07.9 - Chest pain, unspecified (4) Hyperlipidemia: Qualifiers: Hyperlipidemia type: pure hypertriglyceridemia Qualified Code(s): E78.1 - Pure hyperglyceridemia (5) Type 2 diabetes mellitus: Qualifiers: Diabetes mellitus intermediate insulin use: without intermodal truck driver use Diabetes mellitus complication status: with circulatory complication Diabetes mellitus complication detail: with other circulatory complications Qualified Code(s): E 11.59 - Type 2 diabetes mellitus with other circulatory complications (6) CKD (chronic kidney disease): Qualifiers: Chronic kidney disease stage: stage 3 (moderate) Chronic kidney disease stage 3 subtype: stage 3a (GFR 45-59) Qualified Code(s): N18.31 - Chronic kidney disease, stage 3a (7) NSTEMI (non-ST elevated myocardial infarction): (8) COELTTE (acute kidney injury): Plan NSTEMI, chest pain Cardiac stress test IMPRESSIONS 1. Medium to large sized partially reversible perfusion abnormality of moderate severity of basal to apical inferior, basal to mid inferolateral, apical lateral and apical mccall. 2. This may represent old myocardial infarction in right coronary artery/circumflex artery territory with mild rodrigo-infarct ischemia. 3. The left ventricular ejection fraction is low normal with a value of 52%. 4. There is hypokinesis of mid to apical inferior and apical lateral mccall. 5. EKG portion of the study will be reported separately. Plan -So EKGs, serial troponins, telemetry monitoring -Cardiac echo -Aspirin, statin -Cardiology consulted by emergency room COLETTE on CKD, monitor Type 2 diabetes mellitus, low-dose sliding scale Full code Lovenox for DVT prophylaxis PDMP PDMP Reviewed: Not Reviewed Attestations 2 Medical Necessity Statement*: Patient requires hospitalization for chest pain, NSTEMI, inpatient, greater than 2 midnights Diagnoses Essential hypertension I10 Hypertension type: essential hypertension Other congestive heart failure I50.9 Heart failure type: other Chest pain R07.9 Chest pain type: unspecified Pure hypertriglyceridemia E78.1 Hyperlipidemia type: pure hypertriglyceridemia Type 2 diabetes mellitus with other circulatory complication, without long-term current use of insulin E11.59 Diabetes mellitus intermediate insulin use: without intermodal truck driver use Diabetes mellitus complication status: with circulatory complication Diabetes mellitus complication detail: with other circulatory complications Stage 3a chronic kidney disease N18.31 Chronic kidney disease stage: stage 3 (moderate) Chronic kidney disease stage 3 subtype: stage 3a (GFR 45-59) NSTEMI (non-ST elevated myocardial infarction) I21.4 COLETTE (acute kidney injury) N17.9
[2024-11-24 16:00] LABS: Troponin 5 2HR 52.68 ng/L (0-15)
[2024-11-24 16:02] LABS: Troponin 5 2HR Delta -0.32 ABS# (0-10)
[2024-11-24 16:07] LABS: Procalcitonin 0.37 ng/mL (0-0.5)
--- NOTE | 2024-11-24 18:03 | PM.CONSULT ---
Providers/Reason For Consult Consulting Physician/Specialty*: Hospitalist Reason for Consult*: Chest pain and elevated troponin Requesting Physician: Dr. Stephenson Attending Physician: Hemant Stephenson MD Primary Care Provider: Audra Hillman MD History of Present Illness History of Present Illness Ravi Mi is a 79 year old male with a known history of hypertension, diabetes and an abnormal stress test in the past with preserved LV systolic function, presented to the ER with atypical chest pain symptoms. EKG showed sinus rhythm with frequent PACs, intraventricular conduction delay. While he was in the ER he also had a run of 14-15 beats of nonsustained VT. Clinically patient remained stable and asymptomatic during this brief episode. Cardiac enzymes mildly elevated in the setting of worsening renal function from 1.6 to 2. Clinically no signs of heart failure symptoms. Overall patient is well stable hemodynamically. Review of Systems Narrative: Detailed 10 point systemic review unremarkable except for as mentioned above in the history of present illness. His overall ambulatory status is fairly limited. He does use cane for his ambulation to the bathroom. Medications/Allergies Home Medications ?Medication ?Instructions ?Recorded ?Confirmed ?Last Taken ?Type aspirin 81 mg chewable tablet 81 mg PO DAILY 01/02/21 11/24/24 11/24/24 History crkwexpwxbxm-fpz-qylnp acid-vit 1 tab PO DAILY 04/02/21 11/24/24 11/24/24 History K-lycop 400 mcg-20 mcg-370 mcg tablet (Men's 50 Plus Multivitamin) nitroglycerin 0.4 mg sublingual 0.4 mg sublingual Q5M PRN Chest 05/08/21 11/24/24 Unknown History tablet Pain alcohol swabs 1 pad topical DIRECTED #200 ea 10/26/24 11/24/24 11/24/24 Rx blood sugar diagnostic (Blood #200 ea 10/26/24 11/24/24 Unknown Rx Glucose Test strips) blood-glucose meter (Blood Glucose #1 ea 10/26/24 11/24/24 Unknown Rx Monitoring kit) empagliflozin 25 mg tablet 25 mg PO DAILY 90 days #90 tabs 10/26/24 11/24/24 11/24/24 Rx glimepiride 4 mg tablet 4 mg PO BID 90 days #180 tabs 10/26/24 11/24/24 11/24/24 Rx hydrochlorothiazide 25 mg tablet 25 mg PO QAM 90 days #90 tabs 10/26/24 11/24/24 11/24/24 Rx lancets #100 ea 10/26/24 11/24/24 Unknown Rx metformin 1,000 mg tablet 1,000 mg PO BID 90 days #180 tabs 10/26/24 11/24/24 11/24/24 Rx potassium chloride 8 mEq 8 meq PO DAILY 90 days #90 tabs 10/26/24 11/24/24 11/24/24 Rx tablet,extended release cholecalciferol (vitamin D3) 25 25 mcg PO DAILY 11/24/24 11/24/24 11/24/24 History mcg (1,000 unit) tablet (Vitamin D3) furosemide 40 mg tablet See Rx Instructions .Route .COMPLEX 11/24/24 11/24/24 11/24/24 History Allergies Allergy/AdvReac Type Severity Reaction Status Date / Time prednisone Allergy unk Verified 10/26/24 08:33 Tetracyclines Allergy ALGY-Redness Verified 11/24/24 14:06 of Skin Current Medications Generic Name Dose Route Start Last Admin Trade Name Freq PRN Reason Stop Dose Admin Heparin Sodium/Sodium Chloride 25,000 unit in 500 mls @ 0 mls/hr 11/24/24 15:15 11/24/24 15:35 Heparin Drip IV 14.44 unit/kg/hr CONT SHENA 38 mls/hr Administration Protocol Per Protocol PFSH Acute PFSH: Medical History Primary osteoarthritis, right shoulder Strain of right trapezius muscle Hyperlipidemia Erectile dysfunction Pedal edema CHF (congestive heart failure) Hypertension Metoprolol and lisinopril DC due to low BP. Asthma Type 2 diabetes mellitus Surgical History History of arthroscopic knee surgery Right History of eye surgery Social History Smoking and tobacco/nicotine status: never used tobacco/nicotine Alcohol intake: never Substance/Drug Use: never Vitals/I&O/Wt Last Vital Signs Temp 97.9 F 11/24/24 11:52 Pulse 85 11/24/24 17:02 Resp 16 11/24/24 12:45 BP 119/73 11/24/24 17:02 Pulse Ox 93 11/24/24 17:02 O2 Del Method Room Air 11/24/24 17:02 11/24/24 11/24/24 11/24/24 06:59 14:59 22:59 Intake Total 250 / 250 Balance 250 / 250 Weight last 48 hrs Weight 290 lb Physical Exam Narrative: Patient laying comfortably on the stretcher in the ER. He is not in any respiratory distress at rest. Vitals are stable. Const: OTHER: Normal HENMT: OTHER: Normal Resp: OTHER: Good air entry bilaterally. There was no added sounds. Cardio: OTHER: Normal first and second heart sounds. There is a mild systolic murmur at the left lower sternal border. GI: OTHER: Soft nontender abdomen. Bowel sounds audible and normal. Extremity: OTHER: Normal extremities. No pedal edema. Distal pulses weak bilaterally. Neuro: OTHER: Grossly intact. Skin: OTHER: Skin warm and dry. Data 11/24/24 13:34 11/24/24 13:34 A&P Assessment and plan (1) NSTEMI (non-ST elevated myocardial infarction): (2) Chest pain: Qualifiers: Chest pain type: unspecified Qualified Code(s): R07.9 - Chest pain, unspecified (3) COLETTE (acute kidney injury): Plan 79-year-old male patient with history of hypertension diabetes mellitus and chronic kidney disease now presenting with fairly atypical chest pain symptoms. Cardiac troponin enzymes are mildly elevated in the setting of renal insufficiency with increase of creatinine from 1.4-2. Currently patient is asymptomatic and no active chest pain. He is overall euvolemic. No heart failure symptoms. I recommend to continue ACS management. Also recommend to start low-dose of beta-herb PDMP PDMP Reviewed: Not Reviewed Coding Level of Care Code 43960 Diagnoses NSTEMI (non-ST elevated myocardial infarction) I21.4 Chest pain R07.9 Chest pain type: unspecified COLETTE (acute kidney injury) N17.9 Time Spent (min) 20
--- NOTE | 2024-11-24 18:22 | ECG_ITS ---
[facility] Test Date: 2024-11-24 Pat Name: Ravi Mi Department: Room: 108 Gender: Male [place]: : 1945 Requested By: Antolin Mullen Order Number: [id number] Bhupinder MD: Sony Montague M.D. Measurements Intervals [place] Rate: 62 P: -77 MN: 138 QRS: -70 QRSD: 140 T: 72 QT: 443 QTc: 452 Interpretive Statements SINUS RHYTHM WITH PACs INTRAVENTRICULAR CONDUCTION DELAY [130+ ms QRS DURATION] Compared to ECG 11/24/2024 13:59:15 Ventricular premature complex(es) no longer present Electronically Signed On 11-25-2024 08:12:14 TANK HOUSE SUPERVISOR by Sony Montague M.D. [email or web address] [id number]
[2024-11-24 19:48] LABS: Chol HDL Ratio 7.03 mg/dL (1.0-5.00); Cholesterol 218 mg/dL (0-200); HDL Cholesterol 31 mg/dL (60-100); LDL Cholesterol Calculated 140 mg/dL (50-129); LDL HDL Ratio 4.52 RATIO (0.00-3.22); Thyroid Stimulating Hormone 2.91 uIU/mL (0.27-4.20); Triglycerides 234 mg/dL (0-150)
[2024-11-24 20:11] LABS: Troponin 5 6HR 50.02 ng/L (0-15)
[2024-11-24 20:12] LABS: Troponin 5 6HR Delta -2.98 ng/L (0-12)
[2024-11-24 20:17] LABS: Add Urine Microscopic? NO
[2024-11-24 20:18] LABS: Bilirubin Urine Negative (Negative); Blood Urine Negative (Negative); Glucose Urine UA 3+ (Normal); Ketones Urine Negative (Negative); Leukocyte Esterase Urine Negative (Negative); Nitrate Urine Negative (Negative); Protein Urine Negative (Negative); Specific Gravity, Urine 1.021 (1.005-1.030); Urine Appearance Clear (CLEAR); Urine Color Yellow (Yellow); Urobilinogen Urine 0.2 mg/dL (Negative)
[2024-11-24 20:26] LABS: Charge for UA Resulting for Rev
[2024-11-24 20:47] LABS: Glucose Point of Care 198 mg/dL (70-110)
[2024-11-24] MEDS: pantoprazole 40 mg SDV IVP (20:47)
[2024-11-24] MEDS: metoprolol tartrate 25 mg Tablet PO (20:47)
[2024-11-24] MEDS: atorvastatin 40 mg Tablet PO (20:47)
[2024-11-24] MEDS: insulin lispro 100 unit/1 mL SUBCUT (20:47)
[2024-11-24 22:23] LABS: Partial Thromboplastin Time 137.8 SECONDS (23.9-36.7)
[2024-11-24 23:39] LABS: Estmated Average Glucose 197; Hemoglobin A1C 8.5 % (4.0-6.0)
[2024-11-25] VITALS (9 sets, daily range): BP systolic 108–136; BP diastolic 63–78; PULSE 53–65; RESP 12–19; TEMP 36.4–37.1; O2SAT 93–96; BMI 36.9
[2024-11-25] MEDS: potassium chloride ER 20 mEq Tablet 40 MEQ PO (03:29)
[2024-11-25] MEDS: acetaminophen 325 mg Tablet 650 MG PO ×2 (03:39→09:58)
[2024-11-25] MEDS: heparin drip 25,000 UNIT/500 ML PREMIX 30 UNIT IV (05:08)
[2024-11-25 05:25] LABS: Basophils % 0.4 %; Eosinophils # 0.3 10^3/uL (0.0-0.8); Eosinophils % 3.5 %; Hematocrit 42.6 % (37-53); Lymphocytes # 1.7 10^3/uL (0.8-4.8); Lymphocytes % 21.5 %; Mean Corpuscular HGB Conc 32.9 g/dL (30-55); Mean Corpuscular Volume 91.2 fl (82-101); Mean Platelet Volume 10.9 fL (7.4-10.4); Monocytes # 0.6 10^3/uL (0.2-0.9); Monocytes % 7.6 %; Neutrophils % 66.6 %; Nucleated Red Blood Cells % 0 %; Platelet Count 159 10^3/cmm (157-399); Red Blood Count 4.67 10^6/uL (3.85-5.65); Red Cell Distribution Width 13.2 % (12.1-15.1); White Blood Count 7.66 10^3/uL (3.29-11.43)
[2024-11-25 05:42] LABS: Alanine Aminotransferase 9 U/L (0-41); Albumin Level 3.3 g/dL (3.5-5.2); Alkaline Phosphatase 111 U/L (40-130); Anion Gap 14.1 (5-19); Aspartate Amino Transferase 7 U/L (0-40); Blood Urea Nitrogen 63 mg/dL (8-23); Calcium 8.9 mg/dL (8.5-10.5); Carbon Dioxide 30 mmol/L (22-29); Chloride 90 mmol/L (98-107); Creatinine Clr Calc Pharmacy 37.3008; Globulin 3.4 g/dL (1.3-4.6); Glucose 155 mg/dL (65-115); Magnesium 1.8 mg/dL (1.7-2.3); Osmolality Calculated 293 mOsm/kg (285-295); Phosphorus 3.9 mg/dL (2.5-4.5); Potassium 3.1 mmol/L (3.5-5.1); Sodium 131 mmol/L (136-145); Total Bilirubin 0.7 mg/dL (0.15-1.2); Total Protein 6.7 g/dL (6.6-8.7)
[2024-11-25 05:48] LABS: Partial Thromboplastin Time 107.9 SECONDS (23.9-36.7)
[2024-11-25 08:13] LABS: Glucose Point of Care 177 mg/dL (70-110)
[2024-11-25] MEDS: insulin lispro 100 unit/1 mL SUBCUT ×3 (08:25→22:06)
[2024-11-25] MEDS: aspirin 81 mg Chew Tablet PO (08:26)
[2024-11-25] MEDS: metoprolol tartrate 25 mg Tablet 12.5 MG PO ×2 (09:50→22:07)
--- NOTE | 2024-11-25 10:49 | PC.CHAP ---
Pastoral Care Encounter/Spiritual Assessment Type of Contact [] Declined truck driver rubbish collector visit [] Patient/Family/Request visit [] Outpatient visit [] Follow-up visit [] Physician referral [] Code/Alert [] Routine visit [] Staff referral [] Actively dying [X] Patient sleeping [] Family support [] [] Out of room [] Palliative care [] [] Receiving care in room [] Pre-surgical visit [] Trauma [] Long length of stay [] ICU visit [] Other: Relational/Emotional Strength [] Patient feels connected with others/family/visitors/staff [] Distress [] Loneliness/isolation [] Abandonment Spirituality of Patient [] Person of Charo [] Attends Hindu of their Charo [] Believes in Prayer [] Reads Bible or Sabianism materials [] There are Spiritual issues to be addressed Topographical Drafter Interventions [] Prayer [] Active listening [] Non-anxious presence [] Spiritual/emotional support [] Crisis/trauma care [] Spiritual counseling [] Bereavement support [] Provided bereavement packet [] Provided Bible/devotional materials [] Provided toy/stuffed animal, coloring book to patient or family member [] Provided Communion [] Anointing/[place] [] Salvation [] Completed spiritual assessment [] Other: Impact on Illness or Injury [] Angry [] Fearful [] Anxious [] Often cries [] Exhaustion [] Unable to work [] Unable to attend holiness [] Unable to walk/stand [] Unable to read [] Unable to drive [] Unable to eat/drink [] Unable to sleep [] Unable to be with family [] Patient intubated [] Other: Summary Time spent with patient
[2024-11-25 11:47] LABS: Glucose Point of Care 184 mg/dL (70-110)
[2024-11-25 12:41] LABS: Partial Thromboplastin Time 68.7 SECONDS (23.9-36.7)
--- NOTE | 2024-11-25 13:51 | PM.PN ---
Subjective Subjective: Patient was seen this morning, denies any chest pain, denies shortness of breath Vitals/I&O/Wt Last Vital Signs Temp 97.8 F 11/25/24 11:42 Pulse 53 L 11/25/24 11:42 Resp 17 11/25/24 11:42 BP 123/78 11/25/24 11:42 Pulse Ox 96 11/25/24 11:42 O2 Del Method Room Air 11/25/24 11:42 11/24/24 11/25/24 11/25/24 22:59 06:59 14:59 Intake Total 278.033 / 528.033 211 / 739.033 728.167 / 728.167 Output Total 300 / 300 Balance 278.033 / 528.033 211 / 739.033 428.167 / 428.167 Weight last 48 hrs Weight 120.259 kg Weight 122.045 kg Weight 131.542 kg Physical Exam Const: COMMON NORMALS: no acute distress and patient oriented x3 Resp: COMMON NORMALS: normal respiratory effort, No retractions, No use of accessory muscles and clear to auscultation bilaterally AUSCULTATION: clear to auscultation bilaterally Cardio: COMMON NORMALS: regular rate, regular rhythm, S1 normal heart sound present and S2 normal heart sound present RATE: regular rate RHYTHM: regular rhythm HEART SOUNDS: S1 normal heart sound present and S2 normal heart sound present GI: COMMON NORMALS: Normal to inspection, nondistended, normoactive bowel sounds present and non-tender Extremity: COMMON NORMALS: no pedal edema Neuro: COMMON NORMALS: patient oriented x3 and CN's II-XII intact bilaterally Psych: COMMON NORMALS: mental status grossly normal Data 11/25/24 05:14 11/25/24 05:14 A&P Assessment and plan (1) Hypertension: Qualifiers: Hypertension type: essential hypertension Qualified Code(s): I10 - Essential (primary) hypertension (2) CHF (congestive heart failure): Qualifiers: Heart failure type: other Qualified Code(s): I50.9 - Heart failure, unspecified (3) Chest pain: Qualifiers: Chest pain type: unspecified Qualified Code(s): R07.9 - Chest pain, unspecified (4) Hyperlipidemia: Qualifiers: Hyperlipidemia type: pure hypertriglyceridemia Qualified Code(s): E78.1 - Pure hyperglyceridemia (5) Type 2 diabetes mellitus: Qualifiers: Diabetes mellitus usp insulin use: without longshore equipment operator use Diabetes mellitus complication status: with circulatory complication Diabetes mellitus complication detail: with other circulatory complications Qualified Code(s): E11.59 - Type 2 diabetes mellitus with other circulatory complications (6) CKD (chronic kidney disease): Qualifiers: Chronic kidney disease stage: stage 3 (moderate) Chronic kidney disease stage 3 subtype: stage 3a (GFR 45-59) Qualified Code(s): N18.31 - Chronic kidney disease, stage 3a (7) NSTEMI (non-ST elevated myocardial infarction): (8) COLETTE (acute kidney injury): Plan NSTEMI, chest pain Cardiac stress test IMPRESSIONS 1. Medium to large sized partially reversible perfusion abnormality of moderate severity of basal to apical inferior, basal to mid inferolateral, apical lateral and apical mccall. 2. This may represent old myocardial infarction in right coronary artery/circumflex artery territory with mild rodrigo-infarct ischemia. 3. The left ventricular ejection fraction is low normal with a value of 52%. 4. There is hypokinesis of mid to apical inferior and apical lateral mccall. 5. EKG portion of the study will be reported separately. Plan -So EKGs, serial troponins, telemetry monitoring -Cardiac echo CONCLUSIONS Mild global hypokinesis. Mildly reduced LV systolic function, LVEF estimated 47%. Mild mitral regurgitation. No other significant valvular abnormality noted. Normal size RV and RV systolic function. Normal RV and pulmonary pressures. -Aspirin, statin -Cardiology consulted by emergency room -Plan on stress testing COLETTE on CKD, monitor Type 2 diabetes mellitus, low-dose sliding scale Full code Lovenox for DVT prophylaxis PDMP PDMP Reviewed: Not Reviewed Attestations Medical Necessity Statement*: Patient requires hospitalization for NSTEMI, COLETTE, need for stress testing on Wednesday Diagnoses Essential hypertension I10 Hypertension type: essential hypertension Other congestive heart failure I50.9 Heart failure type: other Chest pain R07.9 Chest pain type: unspecified Pure hypertriglyceridemia E78.1 Hyperlipidemia type: pure hypertriglyceridemia Type 2 diabetes mellitus with other circulatory complication, without long-term current use of insulin E11.59 Diabetes mellitus usp insulin use: without longshore equipment operator use Diabetes mellitus complication status: with circulatory complication Diabetes mellitus complication detail: with other circulatory complications Stage 3a chronic kidney disease N18.31 Chronic kidney disease stage: stage 3 (moderate) Chronic kidney disease stage 3 subtype: stage 3a (GFR 45-59) NSTEMI (non-ST elevated myocardial infarction) I21.4 COLETTE (acute kidney injury) N17.9
[2024-11-25 16:26] LABS: Glucose Point of Care 130 mg/dL (70-110)
[2024-11-25 17:24] LABS: Partial Thromboplastin Time 61.5 SECONDS (23.9-36.7)
[2024-11-25] MEDS: pantoprazole 40 mg SDV IVP (17:51)
[2024-11-25 20:05] LABS: Glucose Point of Care 210 mg/dL (70-110)
[2024-11-25] MEDS: atorvastatin 40 mg Tablet PO (22:07)
[2024-11-25 23:22] LABS: Partial Thromboplastin Time 60.8 SECONDS (23.9-36.7)
[2024-11-26] VITALS (8 sets, daily range): BP systolic 101–130; BP diastolic 55–76; PULSE 60–68; RESP 12–19; TEMP 36.4–37.1; O2SAT 94–98; BMI 36.7
[2024-11-26] MEDS: heparin drip 25,000 UNIT/500 ML PREMIX 22 UNIT IV (03:57)
[2024-11-26 05:04] LABS: Basophils % 0.5 %; Eosinophils # 0.2 10^3/uL (0.0-0.8); Eosinophils % 2.9 %; Hematocrit 39.9 % (37-53); Lymphocytes # 1.9 10^3/uL (0.8-4.8); Lymphocytes % 27.8 %; Mean Corpuscular HGB Conc 33.3 g/dL (30-55); Mean Corpuscular Hemoglobin 30.3 pg (27-33); Mean Corpuscular Volume 90.9 fl (82-101); Mean Platelet Volume 11.1 fL (7.4-10.4); Monocytes # 0.5 10^3/uL (0.2-0.9); Monocytes % 8.1 %; Neutrophils # 4.03 10^3/uL (1.8-7.7); Neutrophils % 60.4 %; Nucleated Red Blood Cells % 0 %; Platelet Count 161 10^3/cmm (157-399); Red Blood Count 4.39 10^6/uL (3.85-5.65); Red Cell Distribution Width 13.2 % (12.1-15.1); White Blood Count 6.66 10^3/uL (3.29-11.43)
[2024-11-26 05:17] LABS: Partial Thromboplastin Time 61.4 SECONDS (23.9-36.7)
[2024-11-26 05:20] LABS: Alanine Aminotransferase 9 U/L (0-41); Alkaline Phosphatase 110 U/L (40-130); Anion Gap 15.6 (5-19); Aspartate Amino Transferase 10 U/L (0-40); Blood Urea Nitrogen 63 mg/dL (8-23); Calcium 8.9 mg/dL (8.5-10.5); Carbon Dioxide 29 mmol/L (22-29); Chloride 96 mmol/L (98-107); Creatinine Clr Calc Pharmacy 36.9048; Globulin 3.4 g/dL (1.3-4.6); Glucose 139 mg/dL (65-115); Magnesium 1.9 mg/dL (1.7-2.3); Osmolality Calculated 304 mOsm/kg (285-295); Phosphorus 2.8 mg/dL (2.5-4.5); Potassium 3.6 mmol/L (3.5-5.1); Sodium 137 mmol/L (136-145); Total Bilirubin 0.6 mg/dL (0.15-1.2); Total Protein 6.4 g/dL (6.6-8.7)
[2024-11-26 06:23] LABS: Glucose Point of Care 146 mg/dL (70-110)
--- NOTE | 2024-11-26 08:38 | ECG_ITS ---
[facility] Test Date: 2024-11-27 Pat Name: Ravi Mi Department: Room: 108 Gender: Male [employer] Rest[employer]: : 1945 Requested By: Hemant Stephenson Order Number: [id number] Reading MD: Interpretive Statements Lung unchanged pre/post procedure; Intraprocedure shortess of breath [email or web address] [id number]
[2024-11-26] MEDS: insulin lispro 100 unit/1 mL SUBCUT ×3 (08:57→21:25)
[2024-11-26] MEDS: aspirin 81 mg Chew Tablet PO (08:58)
[2024-11-26] MEDS: metoprolol tartrate 25 mg Tablet 12.5 MG PO ×2 (08:58→21:24)
[2024-11-26 11:01] LABS: Partial Thromboplastin Time 55.1 SECONDS (23.9-36.7)
[2024-11-26 11:47] LABS: Glucose Point of Care 191 mg/dL (70-110)
[2024-11-26] MEDS: polyethylene glycol 3350 Pkt 17 gm PO (12:11)
--- NOTE | 2024-11-26 14:34 | PM.PN ---
Subjective Subjective: Patient was seen this morning, he did have an episode of chest pain during the night but he tells me it was brief episode, he recovered quickly, denies any nausea, no vomiting, no diaphoresis Vitals/I&O/Wt Last Vital Signs Temp 97.7 F 11/26/24 11:32 Pulse 62 11/26/24 11:32 Resp 14 11/26/24 11:32 BP 119/66 11/26/24 11:32 Pulse Ox 95 11/26/24 11:32 O2 Del Method Room Air 11/26/24 11:32 11/25/24 11/26/24 11/26/24 22:59 06:59 14:59 Intake Total 348.9 / 1077.067 464.933 / 1542.000 280.067 / 280.067 Output Total 390 / 690 600 / 1290 300 / 300 Balance -41.1 / 387.067 -135.067 / 252.000 -19.933 / -19.933 Weight last 48 hrs Weight 119.55 kg Weight 120.259 kg Weight 122.045 kg Physical Exam Const: COMMON NORMALS: no acute distress and patient oriented x3 Resp: COMMON NORMALS: normal respiratory effort, No retractions, No use of accessory muscles and clear to auscultation bilaterally AUSCULTATION: clear to auscultation bilaterally Cardio: COMMON NORMALS: regular rate, regular rhythm, S1 normal heart sound present and S2 normal heart sound present RATE: regular rate RHYTHM: regular rhythm HEART SOUNDS: S1 normal heart sound present and S2 normal heart sound present GI: COMMON NORMALS: Normal to inspection, nondistended, normoactive bowel sounds present and non-tender Extremity: COMMON NORMALS: no pedal edema Neuro: COMMON NORMALS: patient oriented x3 Psych: COMMON NORMALS: mental status grossly normal Data 11/26/24 04:45 11/26/24 04:45 A&P Assessment and plan (1) Hypertension: Qualifiers: Hypertension type: essential hypertension Qualified Code(s): I10 - Essential (primary) hypertension (2) CHF (congestive heart failure): Qualifiers: Heart failure type: other Qualified Code(s): I50.9 - Heart failure, unspecified (3) Chest pain: Qualifiers: Chest pain type: unspecified Qualified Code(s): R07.9 - Chest pain, unspecified (4) Hyperlipidemia: Qualifiers: Hyperlipidemia type: pure hypertriglyceridemia Qualified Code(s): E78.1 - Pure hyperglyceridemia (5) Type 2 diabetes mellitus: Qualifiers: Diabetes mellitus buttermaker helper insulin use: without [facility] use Diabetes mellitus complication status: with circulatory complication Diabetes mellitus complication detail: with other circulatory complications Qualified Code(s): E11.59 - Type 2 diabetes mellitus with other circulatory complications (6) CKD (chronic kidney disease): Qualifiers: Chronic kidney disease stage: stage 3 (moderate) Chronic kidney disease stage 3 subtype: stage 3a (GFR 45-59) Qualified Code(s): N18.31 - Chronic kidney disease, stage 3a (7) NSTEMI (non-ST elevated myocardial infarction): (8) COLETTE (acute kidney injury): Plan NSTEMI, chest pain Cardiac stress test IMPRESSIONS 1. Medium to large sized partially reversible perfusion abnormality of moderate severity of basal to apical inferior, basal to mid inferolateral, apical lateral and apical mccall. 2. This may represent old myocardial infarction in right coronary artery/circumflex artery territory with mild rodrigo-infarct ischemia. 3. The left ventricular ejection fraction is low normal with a value of 52%. 4. There is hypokinesis of mid to apical inferior and apical lateral mccall. 5. EKG portion of the study will be reported separately. Plan -So EKGs, serial troponins, telemetry monitoring -Cardiac echo CONCLUSIONS Mild global hypokinesis. Mildly reduced LV systolic function, LVEF estimated 47%. Mild mitral regurgitation. No other significant valvular abnormality noted. Normal size RV and RV systolic function. Normal RV and pulmonary pressures. -Aspirin, statin -Cardiology consulted by emergency room -Plan on stress testing, n.p.o. midnight COLETTE on CKD, monitor, renal ultrasound, CPK, gentle IV hydration Type 2 diabetes mellitus, low-dose sliding scale Full code Lovenox for DVT prophylaxis PDMP PDMP Reviewed: Not Reviewed Attestations Medical Necessity Statement*: Patient requires hospitalization for NSTEMI, chest pain Diagnoses Essential hypertension I10 Hypertension type: essential hypertension Other congestive heart failure I50.9 Heart failure type: other Chest pain R07.9 Chest pain type: unspecified Pure hypertriglyceridemia E78.1 Hyperlipidemia type: pure hypertriglyceridemia Type 2 diabetes mellitus with other circulatory complication, without long-term current use of insulin E11.59 Diabetes mellitus buttermaker helper insulin use: without buttermaker helper use Diabetes mellitus complication status: with circulatory complication Diabetes mellitus complication detail: with other circulatory complications Stage 3a chronic kidney disease N18.31 Chronic kidney disease stage: stage 3 (moderate) Chronic kidney disease stage 3 subtype: stage 3a (GFR 45-59) NSTEMI (non-ST elevated myocardial infarction) I21.4 COLETTE (acute kidney injury) N17.9
--- NOTE | 2024-11-26 14:36 | USR_ITS ---
PROCEDURE INFORMATION: Exam: US Retroperitoneal, Complete, Kidneys and Bladder Exam date and time: 11/26/2024 3:08 PM Age: 79 years old Clinical indication: Condition or disease; Other: Artem TECHNIQUE: Imaging protocol: Real-time ultrasound of the retroperitoneum with image documentation. Complete exam focused on the bilateral kidneys and urinary bladder. COMPARISON: No relevant prior studies available. FINDINGS: Right kidney: The right kidney measures 11 x 5.2 x 5.3 cm. No right hydronephrosis. Multiple right simple renal cysts measuring up to 2.5 x 2.1 x 1.7 cm. The right renal cortex thickness measures 1.3 cm. Left kidney: The left renal cortex thickness measures 1.4 cm. The left kidney measures 11.1 x 5.1 x 5.4 cm with no hydronephrosis. There are multiple left renal cysts measuring up to 1.6 x 1.3 x 1.7 cm. Urinary bladder: Unremarkable. US/US renal BI* [id number] IMPRESSION: No hydronephrosis on either side. Bilateral simple renal cysts.
[2024-11-26] MEDS: sodium chloride 0.9% 1,000 ML 30 ML IV (15:03)
[2024-11-26] MEDS: Fleet Enema 133 mL Enema PR (15:51)
[2024-11-26 16:21] LABS: Partial Thromboplastin Time 48.8 SECONDS (23.9-36.7)
[2024-11-26 16:37] LABS: Glucose Point of Care 135 mg/dL (70-110)
--- NOTE | 2024-11-26 17:02 | PC.NURSE ---
Heparin drip PTT currently is 48.8. Per protocol it is to increase to 1 unit/kg/hr. Dr Stephenson notified and asked to verify if needed a bolus per protocol. per Dr Stephenson not to give a bolus. Verified with 2 RNs at bedside.
[2024-11-26] MEDS: pantoprazole 40 mg SDV IVP (17:50)
[2024-11-26 20:58] LABS: Glucose Point of Care 187 mg/dL (70-110)
[2024-11-26] MEDS: atorvastatin 40 mg Tablet PO (21:23)
[2024-11-26 23:16] LABS: Partial Thromboplastin Time 40.4 SECONDS (23.9-36.7)
[2024-11-26] MEDS: heparin 5,000 unit/mL INJ 1 mL IVP (23:46)
[2024-11-27] VITALS (7 sets, daily range): BP systolic 119–131; BP diastolic 50–73; PULSE 58–74; RESP 16–28; TEMP 36.4–37.1; O2SAT 95–100
[2024-11-27] MEDS: heparin drip 25,000 UNIT/500 ML PREMIX 30 UNIT IV (01:46)
[2024-11-27 04:16] LABS: Basophils % 0.6 %; Eosinophils # 0.2 10^3/uL (0.0-0.8); Eosinophils % 3.1 %; Hematocrit 42.1 % (37-53); Lymphocytes # 1.7 10^3/uL (0.8-4.8); Mean Corpuscular Volume 90.7 fl (82-101); Mean Platelet Volume 10.8 fL (7.4-10.4); Monocytes # 0.5 10^3/uL (0.2-0.9); Monocytes % 8.3 %; Neutrophils # 4.01 10^3/uL (1.8-7.7); Neutrophils % 61.5 %; Nucleated Red Blood Cells % 0 %; Platelet Count 202 10^3/cmm (157-399); Red Blood Count 4.64 10^6/uL (3.85-5.65); Red Cell Distribution Width 13.2 % (12.1-15.1); White Blood Count 6.51 10^3/uL (3.29-11.43)
[2024-11-27 04:34] LABS: Alanine Aminotransferase 8 U/L (0-41); Albumin Level 3.3 g/dL (3.5-5.2); Alkaline Phosphatase 121 U/L (40-130); Anion Gap 14.8 (5-19); Aspartate Amino Transferase 9 U/L (0-40); Blood Urea Nitrogen 61 mg/dL (8-23); Calcium 9.2 mg/dL (8.5-10.5); Carbon Dioxide 30 mmol/L (22-29); Chloride 97 mmol/L (98-107); Globulin 3.7 g/dL (1.3-4.6); Glucose 158 mg/dL (65-115); Osmolality Calculated 307 mOsm/kg (285-295); Phosphorus 2.6 mg/dL (2.5-4.5); Potassium 3.8 mmol/L (3.5-5.1); Sodium 138 mmol/L (136-145); Total Bilirubin 0.5 mg/dL (0.15-1.2)
[2024-11-27 06:05] LABS: Glucose Point of Care 153 mg/dL (70-110)
[2024-11-27] MEDS: regadenoson 0.4 Mg/5 ml Syringe IVP (07:00)
[2024-11-27] MEDS: aspirin 81 mg Chew Tablet PO (08:17)
[2024-11-27] MEDS: polyethylene glycol 3350 Pkt 17 gm PO (08:18)
[2024-11-27] MEDS: insulin lispro 100 unit/1 mL SUBCUT ×4 (08:18→20:43)
[2024-11-27] MEDS: metoprolol tartrate 25 mg Tablet 12.5 MG PO ×2 (08:18→20:43)
--- NOTE | 2024-11-27 08:38 | NMCV_ITS ---
NM sierra perf SPECT r/s* [id number] Ravi Mi Age: 79 Gender: M : 1945 Exam Date: 11/27/2024 06:20 Ordering Phys: Hemant Stephenson MD Technologist: KAYKAY Gustafson Exam Location: [facility] Indications: cp STRESS TEST Please see separate stress test report in [facility] for full findings IMAGE PROTOCOL Rest/Stress 1 Radiopharmaceutical Dose (mCi) Administration Site Administered by Rest: Tc-99m 10.8 IV Angélica Wong, TECHNICAL SERVICES ASSISTANT Sestamibi Stress:Tc-99m 32.0 IV Angélica Wong, TECHNICAL SERVICES ASSISTANT Sestamibi Rest: 27-Nov-2024 60 Discovery 630 Stress: 27-Nov-2024 30 Discovery 630 Images obtained in supine and prone position. SPECT RESULTS Technical Quality: Good Raw Data Analysis: Normal Image Corrections: No attenuation or motion correction applied Summed Stress Score: 16 Summed Rest Score: 19 Summed Difference Score: 0 PERFUSION FINDINGS Large area of fixed perfusion defect noted in basal to distal inferior inferolateral wall FUNCTIONAL RESULTS (calculated via Gated SPECT) Stress Image LV EF (%): 60 Stress EDV (mL):121 TID: 1.01 Stress ESV (mL):48 FUNCTIONAL FINDINGS: Inferior and inferolateral wall hypokinesis IMPRESSIONS Large area of old myocardial infarction noted in the basal to distal inferior and basal to distal inferolateral wall suggestive of old myocardial infarction without rodrigo-infarct ischemia. This study is negative for ischemia. Jenelle Tolentino MD (Electronically Signed) Final Date: 27 November 2024 13:04 S
[2024-11-27 12:11] LABS: Partial Thromboplastin Time 54.5 SECONDS (23.9-36.7)
--- NOTE | 2024-11-27 12:20 | PC.SOCIAL ---
IMM Update pg 2 of IMM Updated and reviewed w/ patient. Copy provided and copy dated, initialed and placed in chart.
--- NOTE | 2024-11-27 12:36 | PC.NURSE ---
heparin drip Notified Dr. Stephenson if pt requires IV heparin Bolus for a PTT-54.5. Per Dr Stephenson to not give the bolus and just adjust the continues rate. Heparin rate increased to 25 mls/hr, verified with MARK Brown.
[2024-11-27 12:41] LABS: Glucose Point of Care 230 mg/dL (70-110)
--- NOTE | 2024-11-27 16:29 | P.PN_ITS ---
Subjective 2 Subjective: Patient was seen this morning, did complain of 1 episode of chest pain to the night but he tells me it was very light chest pain Vitals/I&O/Wt Last Vital Signs Temp 97.6 F 11/27/24 12:00 Pulse 63 11/27/24 12:00 Resp 28 H 11/27/24 12:00 BP 119/50 11/27/24 12:00 Pulse Ox 95 11/27/24 12:00 O2 Del Method Room Air 11/27/24 12:00 11/27/24 11/27/24 11/27/24 06:59 14:59 22:59 Intake Total 323.366 / 6974.630 6139.700 / 1366.700 Output Total 400 / 700 300 / 300 Balance -76.634 / 318.372 0574.700 / 1066.700 Weight last 48 hrs Weight 118.932 kg Weight 119.55 kg Physical Exam 2 Const: COMMON NORMALS: no acute distress and patient oriented x3 Resp: COMMON NORMALS: normal respiratory effort, No retractions, No use of accessory muscles and clear to auscultation bilaterally AUSCULTATION: clear to auscultation bilaterally Cardio: COMMON NORMALS: regular rate, regular rhythm, S1 normal heart sound present and S2 normal heart sound present RATE: regular rate RHYTHM: r egular rhythm HEART SOUNDS: S1 normal heart sound present and S2 normal heart sound present GI: COMMON NORMALS: Normal to inspection, nondistended, normoactive bowel sounds present and non-tender Extremity: COMMON NORMALS: no pedal edema Neuro: COMMON NORMALS: patient oriented x3 Psych: COMMON NORMALS: mental status grossly normal Data 11/27/24 03:40 11/27/24 03:40 A&P Assessment and plan (1) Hypertension: Qualifiers: Hypertension type: essential hypertension Qualified Code(s): I10 - Essential (primary) hypertension (2) CHF (congestive heart failure): Qualifiers: Heart failure type: other Qualified Code(s): I50.9 - Heart failure, unspecified (3) Chest pain: Qualifiers: Chest pain type: unspecified Qualified Code(s): R07.9 - Chest pain, unspecified (4) Hyperlipidemia: Qualifiers: Hyperlipidemia type: pure hypertriglyceridemia Qualified Code(s): E78.1 - Pure hyperglyceridemia (5) Type 2 diabetes mellitus: Qualifiers: Diabetes mellitus fci insulin use: without [employer] use Diabetes mellitus complication status: with circulatory complication Diabetes mellitus complication detail: with other circulatory complications Qualified Code(s): E 11.59 - Type 2 diabetes mellitus with other circulatory complications (6) CKD (chronic kidney disease): Qualifiers: Chronic kidney disease stage: stage 3 (moderate) Chronic kidney disease stage 3 subtype: stage 3a (GFR 45-59) Qualified Code(s): N18.31 - Chronic kidney disease, stage 3a (7) NSTEMI (non-ST elevated myocardial infarction): (8) COLETTE (acute kidney injury): Plan NSTEMI, chest pain Cardiac stress test IMPRESSIONS 1. Medium to large sized partially reversible perfusion abnormality of moderate severity of basal to apical inferior, basal to mid inferolateral, apical lateral and apical mccall. 2. This may represent old myocardial infarction in right coronary artery/circumflex artery territory with mild rodrigo-infarct ischemia. 3. The left ventricular ejection fraction is low normal with a value of 52%. 4. There is hypokinesis of mid to apical inferior and apical lateral mccall. 5. EKG portion of the study will be reported separately. Plan -So EKGs, serial troponins, telemetry monitoring -Cardiac echo CONCLUSIONS Mild global hypokinesis. Mildly reduced LV systolic function, LVEF estimated 47%. Mild mitral regurgitation. No other significant valvular abnormality noted. Normal size RV and RV systolic function. Normal RV and pulmonary pressures. -Aspirin, statin -Cardiology consulted by emergency room -Plan on stress testing, COLETTE on CKD, monitor, Type 2 diabetes mellitus, low-dose sliding scale Full code Heparin drip for DVT prophylaxis PDMP PDMP Reviewed: Not Reviewed Attestations 2 Medical Necessity Statement*: Patient requires hospitalization for stress testing Diagnoses Essential hypertension I10 Hypertension type: essential hypertension Other congestive heart failure I50.9 Heart failure type: other Chest pain R07.9 Chest pain type: unspecified Pure hypertriglyceridemia E78.1 Hyperlipidemia type: pure hypertriglyceridemia Type 2 diabetes mellitus with other circulatory complication, without long-term current use of insulin E11.59 Diabetes mellitus fci insulin use: without [employer] use Diabetes mellitus complication status: with circulatory complication Diabetes mellitus complication detail: with other circulatory complications Stage 3a chronic kidney disease N18.31 Chronic kidney disease stage: stage 3 (moderate) Chronic kidney disease stage 3 subtype: stage 3a (GFR 45-59) NSTEMI (non-ST elevated myocardial infarction) I21.4 COLETTE (acute kidney injury) N17.9
[2024-11-27] MEDS: pantoprazole 40 mg SDV IVP (17:13)
[2024-11-27 17:20] LABS: Glucose Point of Care 145 mg/dL (70-110)
[2024-11-27 20:25] LABS: Glucose Point of Care 209 mg/dL (70-110)
[2024-11-27] MEDS: heparin 5,000 unit/mL INJ 1 mL 5000 UNIT SUBCUT (20:43)
[2024-11-27] MEDS: atorvastatin 40 mg Tablet PO (20:43)
[2024-11-28] VITALS: BP 149/74; PULSE 60; RESP 12; O2SAT 96
[2024-11-28 04:00] VITALS: BP 119/73; PULSE 55; RESP 18; TEMP 36.6; O2SAT 94
[2024-11-28 05:24] VITALS: PULSE 62
[2024-11-28 06:22] LABS: Glucose Point of Care 146 mg/dL (70-110)
[2024-11-28 08:00] VITALS: BP 128/65; PULSE 62; RESP 14; TEMP 36.3; O2SAT 95
[2024-11-28] MEDS: polyethylene glycol 3350 Pkt 17 gm PO (09:57)
[2024-11-28] MEDS: insulin lispro 100 unit/1 mL SUBCUT ×2 (09:57→12:54)
[2024-11-28] MEDS: heparin 5,000 unit/mL INJ 1 mL 5000 UNIT SUBCUT (09:58)
[2024-11-28] MEDS: metoprolol tartrate 25 mg Tablet 12.5 MG PO (09:59)
[2024-11-28] MEDS: aspirin 81 mg Chew Tablet PO (09:59)
--- NOTE | 2024-11-28 10:35 | P.PN_ITS ---
<Statement entered by Sony Montague M.D - 11/29/24 07:47> Patient was evaluated and cared for in conjunction with an advanced practice practitioner.? I personally examined the patient and reviewed the chart and all pertinent data including imaging, telemetry, and laboratory results.? I discussed the patient in detail with the advanced practice practitioner.? Please see? their note for complete progress note, testing results and agreed upon plan of care for the patient. GENERAL: Patient is alert, awake and oriented x3. HEART: Regular S1 and S2 LUNGS: Clear to auscultate bilaterally. CENTRAL NERVOUS SYSTEM: Grossly nonfocal. EXTREMITIES: Lower extremities with out edema bilaterally. Chest pain Stress test not showing significant ischemia. Shared decision made to continue medical therapy and follow up with cardiology Thank you for involving us with care of this patient. Please call with questions Subjective 2 Subjective: No chest pain in the last 24 hours. He is feeling well, no problems with ambulation to the bathroom. Creatinine today 2.0. Vitals/I&O/Wt Last Vital Signs Temp 97.4 F L 11/28/24 08:00 Pulse 62 11/28/24 08:00 Resp 14 11/28/24 08:00 BP 128/65 11/28/24 08:00 Pulse Ox 95 11/28/24 08:00 O2 Del Method Room Air 11/28/24 08:00 11/27/24 11/28/24 11/28/24 22:59 06:59 14:59 Intake Total 240 / 2086.700 480 / 2086.700 Balance 240 / 1786.700 480 / 1786.700 Weight last 48 hrs Weight 262 lb 9.6 oz Weight 262 lb 3.2 oz Physical Exam 2 Const: COMMON NORMALS: no acute distress and patient oriented x3 GENERAL APPEARANCE: cooperative and comfortable ORIENTATION/CONSCIOUSNESS: Yes awake, Yes oriented to person, Yes oriented to place and Yes oriented to time Chest: COMMONS NORMALS: normal inspection of the chest and normal palpation of entire chest wall CHEST: Yes Symmetrical chest wall rise Resp: COMMON NORMALS: normal respiratory effort, No retractions, No use of accessory muscles and clear to auscultation bilaterally EFFORT & INSPECTION: Yes symmetric chest movement AUSCULTATION: clear to auscultation bilaterally Cardio: COMMON NORMALS: regular rate, regular rhythm, S1 normal heart sound present, S2 normal heart sound present, No gallops present (Cardio), No clicks present (Cardio), No murmurs present (Cardio) and No rub (Cardio) RATE: r egular rate RHYTHM: regular rhythm HEART SOUNDS: S1 normal heart sound present and S2 normal heart sound present PERIPHERAL PULSES: radial pulses present Extremity: COMMON NORMALS: no pedal edema Neuro: COMMON NORMALS: patient oriented x3 and moves all extremities S ENSORIUM/ORIENTATION: Yes oriented to person, Yes oriented to place and Yes oriented to time Data 11/27/24 03:40 11/27/24 03:40 A&P Assessment and plan (1) NSTEMI (non-ST elevated myocardial infarction): Chest pain appears to be resolved. Stress test did not show ischemia. Continue medical management of NSTEMI. Recommend to continue metoprolol tartrate 12.5mg BID, can uptitrate depending on blood pressure- currently ranging 120-130 systolic. Will monitor renal function as an outpatient and add on GMDT for systolic CHF as able. LVEF 45-50%. He appears euvolemic currently. (2) Hypertension: Qualifiers: Hypertension type: essential hypertension Qualified Code(s): I10 - Essential (primary) hypertension (3) CHF (congestive heart failure): Qualifiers: Heart failure type: other Qualified Code(s): I50.9 - Heart failure, unspecified PDMP PDMP Reviewed: Not Reviewed Attestations 2 Medical Necessity Statement*: per hospitalist Coding Level of Care Code Acute Code for [facility] Diagnoses NSTEMI (non-ST elevated myocardial infarction) I21.4 Essential hypertension I10 Hypertension type: essential hypertension Other congestive heart failure I50.9 Heart failure type: other
[2024-11-28 11:31] LABS: Blood Urea Nitrogen 51 mg/dL (8-23); Carbon Dioxide 25 mmol/L (22-29); Chloride 98 mmol/L (98-107); Creatinine Clr Calc Pharmacy 48.3465; Glucose 243 mg/dL (65-115); Osmolality Calculated 300 mOsm/kg (285-295); Sodium 134 mmol/L (136-145)
[2024-11-28 11:32] LABS: Anion Gap 15.6 (5-19); Potassium 4.6 mmol/L (3.5-5.1)
[2024-11-28 12:00] VITALS: BP 124/68; PULSE 66; RESP 18; TEMP 36.5; O2SAT 97
[2024-11-28 12:21] LABS: Glucose Point of Care 199 mg/dL (70-110)
--- NOTE | 2024-11-28 12:21 | P.DS_ITS ---
Discharge Providers Date of Admission: 11/24/24 16:44 Date of Discharge: November 28, 2024 Attending Provider at Admission: Hemant Stephenson MD Attending Provider at Discharge: Hemant Stephenson MD Primary Care Provider: Audra Hillman MD Diagnoses at Discharge Discharge Diagnosis (1) NSTEMI (non-ST elevated myocardial infarction): Status: Acute (2) Hypertension: Status: Chronic Qualifiers: Hypertension type: essential hypertension Qualified Code(s): I10 - Essential (primary) hypertension Permanent problem details: Metoprolol and lisinopril DC due to low BP. (3) CHF (congestive heart failure): Status: Acute Qualifiers: Heart failure type: other Qualified Code(s): I50.9 - Heart failure, unspecified Reason for Visit Reason for Visit: SOB, chest pain Hospital Course Hospital Course Ravi Mi is a 79 year old male with a past medical history of type 2 diabetes, history of CAD, hypertension hyperlipidemia who presents [facility] for chest pain. Patient advises that he typically ambulates with a cane, denies any shortness of breath, no lower extremity edema, he reports that today he developed substernal chest pain, no diaphoresis, no nausea, no vomiting, it radiated to the back, no lightheadedness, no dizziness, currently chest pain 3 out of 10, patient had a nonsustained V. tach episode in the emergency room, relatively asymptomatic, She was admitted to [facility] for chest pain ? Monitored as inpatient Cardiac echo CONCLUSIONS Mild global hypokinesis. Mildly reduced LV systolic function, LVEF estimated 47%. Mild mitral regurgitation. No other significant valvular abnormality noted. Normal size RV and RV systolic function. Normal RV and pulmonary pressures. Stress test IMPRESSIONS Large area of old myocardial infarction noted in the basal to distal inferior and basal to distal inferolateral wall suggestive of old myocardial infarction without rodrigo-infarct ischemia. This study is negative for ischemia. -Overall patient clinically improved, -Cardiology was consulted, recommended medical management -Will be discharged on aspirin, statin with a close follow-up with cardiology as outpatient For patient's COLETTE on CKD, his glimepiride, metformin have been discontinued due to his GFR -Have primary care provider monitor kidney function as outpatient, creatinine discharge 1.6 -Discharge him on insulin sliding scale -Follow-up with primary care provider as outpatient Physical Exam Const: COMMON NORMALS: no acute distress and patient oriented x3 Resp: COMMON NORMALS: normal respiratory effort, No retractions, No use of accessory muscles and clear to auscultation bilaterally AUSCULTATION: clear to auscultation bilaterally Cardio: COMMON NORMALS: regular rate, regular rhythm, S1 normal heart sound present and S2 normal heart sound present RATE: regular rate RHYTHM: regular rhythm HEART SOUNDS: S1 normal heart sound present and S2 normal heart sound present GI: COMMON NORMALS: Normal to inspection, nondistended, normoactive bowel sounds present and non-tender Extremity: COMMON NORMALS: no pedal edema Neuro: COMMON NORMALS: patient oriented x3 Psych: COMMON NORMALS: mental status grossly normal Discharge Data Studies Completed and Pending Completed Studies During Hospitalization Category Date Time Status Sestamibi Stress Test Request Routine Exams 11/26/24 08:38 Draft XR chest 1V portable [id number] Stat Exams 11/24/24 12:21 Completed NM sierra perf SPECT r/s* [id number] Routine Nuc Med 11/27/24 08:38 Completed CV. echo complete* [id number] Stat Ultrasound 11/24/24 15:28 Completed US renal BI* [id number] Routine Ultrasound 11/26/24 14:36 Completed Radiology Impressions Chest X-Ray 11/24/24 12:21 Impression: Atherosclerosis. Renal Ultrasound 11/26/24 14:36 IMPRESSION: No hydronephrosis on either side. Bilateral simple renal cysts. Laboratory Results WBC 6.51 10^3/uL (3.29-11.43) 11/27/24 03:40 RBC 4.64 10^6/uL (3.85-5.65) 11/27/24 03:40 Hgb 13.90 g/dL (11.27-16.99) 11/27/24 03:40 Hct 42.1 % (37-53) 11/27/24 03:40 MCV 90.7 fl (82-101) 11/27/24 03:40 MCH 30.0 pg (27-33) 11/27/24 03:40 MCHC 33.0 g/dL (30-55) 11/27/24 03:40 RDW 13.2 % (12.1-15.1) 11/27/24 03:40 Plt Count 202 10^3/cmm (157-399) 11/27/24 03:40 MPV 10.8 fL (7.4-10.4) H 11/27/24 03:40 Neut % (Auto) 61.5 % 11/27/24 03:40 Lymph % (Auto) 26.0 % 11/27/24 03:40 Cherry % (Auto) 8.3 % 11/27/24 03:40 Eos % (Auto) 3.1 % 11/27/24 03:40 Baso % (Auto) 0.6 % 11/27/24 03:40 Neut # (Auto) 4.01 10^3/uL (1.8-7.7) 11/27/24 03:40 Lymph # (Auto) 1.7 10^3/uL (0.8-4.8) 11/27/24 03:40 Cherry # (Auto) 0.5 10^3/uL (0.2-0.9) 11/27/24 03:40 Eos # (Auto) 0.2 10^3/uL (0.0-0.8) 11/27/24 03:40 Baso # (Auto) 0.0 10^3/uL (0.0-0.1) 11/27/24 03:40 Nucleated RBC % (auto) 0 % 11/27/24 03:40 Nucleated RBCs # 0.0 /100WBC 11/27/24 03:40 PT 12.80 SECONDS (12.1-14.9) 11/24/24 13:34 INR 0.90 (0.8-1.2) 11/24/24 13:34 APTT 54.5 SECONDS (23.9-36.7) H D 11/27/24 11:28 Sodium 134 mmol/L (136-145) L 11/28/24 11:06 Potassium 4.6 mmol/L (3.5-5.1) 11/28/24 11:06 Chloride 98 mmol/L (98-107) 11/28/24 11:06 Carbon Dioxide 25 mmol/L (22-29) 11/28/24 11:06 Anion Gap 15.6 (5-19) 11/28/24 11:06 BUN 51 mg/dL (8-23) H 11/28/24 11:06 Creatinine 1.6 mg/dL (0.7-1.2) H 11/28/24 11:06 GFR Calculation Not Reportable 11/28/24 11:06 Glucose 243 mg/dL (65-115) H 11/28/24 11:06 POC Glucose 199 mg/dL (70-110) H 11/28/24 12:02 Estimat Average Glucose 197 11/24/24 13:34 Hemoglobin A1c 8.5 % (4.0-6.0) H 11/24/24 13:34 Calculated Osmolality 300 mOsm/kg (285-295) H 11/28/24 11:06 Calcium 9.0 mg/dL (8.5-10.5) 11/28/24 11:06 Phosphorus 2.6 mg/dL (2.5-4.5) 11/27/24 03:40 Magnesium 2.0 mg/dL (1.7-2.3) 11/27/24 03:40 Total Bilirubin 0.5 mg/dL (0.15-1.2) 11/27/24 03:40 AST 9 U/L (0-40) 11/27/24 03:40 ALT 8 U/L (0-41) 11/27/24 03:40 Alkaline Phosphatase 121 U/L (40-130) 11/27/24 03:40 Troponin T Baseline 53 ng/L (0-15) H 11/24/24 13:34 Troponin T 120 Minute 52.68 ng/L (0-15) H 11/24/24 15:30 Delta Troponin T -0.32 ABS# (0-10) L 11/24/24 15:30 Troponin T Hi Sens 6Hr 50.02 ng/L (0-15) H 11/24/24 19:43 Troponin T Hi Sens 6Hr Delta -2.98 ng/L (0-12) L 11/24/24 19:43 NT-Pro-B Natriuret Pep 414 pg/mL (0-450) 11/24/24 13:34 Total Protein 7.0 g/dL (6.6-8.7) 11/27/24 03:40 Albumin 3.3 g/dL (3.5-5.2) L 11/27/24 03:40 Globulin 3.7 g/dL (1.3-4.6) 11/27/24 03:40 Triglycerides 234 mg/dL (0-150) H 11/24/24 13:34 Cholesterol 218 mg/dL (0-200) H 11/24/24 13:34 LDL Cholesterol, Calc 140 mg/dL (50-129) H 11/24/24 13:34 HDL Cholesterol 31 mg/dL (60-100) L 11/24/24 13:34 LDL/HDL Ratio 4.52 RATIO (0.00-3.22) H 11/24/24 13:34 Cholesterol/HDL Ratio 7.03 mg/dL (1.0-5.00) H 11/24/24 13:34 Procalcitonin 0.37 ng/mL (0-0.5) 11/24/24 13:34 TSH 2.91 uIU/mL (0.27-4.20) 11/24/24 13:34 Urine Color Yellow (Yellow) 11/24/24 20:00 Urine Appearance Clear (CLEAR) 11/24/24 20:00 Urine pH 5.0 (5-7) 11/24/24 20:00 Ur Specific [place] 1.021 (1.005-1.030) 11/24/24 20:00 Urine Protein Negative (Negative) 11/24/24 20:00 Urine Glucose (UA) 3+ (Normal) H 11/24/24 20:00 Urine Ketones Negative (Negative) 11/24/24 20:00 Urine Blood Negative (Negative) 11/24/24 20:00 Urine Nitrate Negative (Negative) 11/24/24 20:00 Urine Bilirubin Negative (Negative) 11/24/24 20:00 Urine Urobilinogen 0.2 mg/dL (Negative) 11/24/24 20:00 Ur Leukocyte Esterase Negative (Negative) 11/24/24 20:00 Amorphous Sediment Not Reportable 11/24/24 20:00 Vitals Last Vital Signs Temp 97.4 F L 11/28/24 08:00 Pulse 62 11/28/24 08:00 Resp 14 11/28/24 08:00 BP 128/65 11/28/24 08:00 Pulse Ox 95 11/28/24 08:00 O2 Del Method Room Air 11/28/24 08:00 Discharge Plan Discharge Patient Disposition: Home Condition: Stable Prescriptions: New atorvastatin 40 mg Tablet 40 mg PO BEDTIME 30 Days Qty: 30 0RF metoprolol tartrate 25 mg Tablet 12.5 mg PO BID@0900,2100 30 Days Qty: 30 0RF insulin aspart U-100 [Novolog FlexPen U-100 Insulin] 100 unit/mL (3 mL) insulin pen See Rx Instructions .ROUTE .COMPLEX Qty: 15 0RF Rx Instructions: Inject, subcut, 3 times daily, after meals, based on low dose sliding scale provided (DME) glucometer testing kit See Rx Instructions .Route .MEDSUPPLY Qty: 1 0RF Rx Instructions: Check blood sugars, 3 times daily, after meals, (DME) lancets Misc See Rx Instructions .Route Qty: 200 0RF Rx Instructions: Check blood sugars 3 times daily (DME) strips See Rx Instructions .Route .MEDSUPPLY Qty: 100 0RF Rx Instructions: Check blood sugars 3 times daily Continued nitroglycerin 0.4 mg tablet, sublingual 0.4 mg sublingual Q5M PRN (Reason: Chest Pain) Rx Instructions: do not exceed 3 doses per episode Men's 50 Plus Multivitamin 400-20-370 mcg tablet 1 tab PO DAILY aspirin 81 mg tablet,chewable 81 mg PO DAILY (DME) blood-glucose meter [Blood Glucose Monitoring] Kit See Rx Instructions .ROUTE .MEDSUPPLY Qty: 1 0RF Rx Instructions: Brand/type per insurance coverage (DME) Blood Glucose Test Strip See Rx Instructions .MEDSUPPLY Qty: 200 12RF Rx Instructions: Use as directed with glucometer to check blood sugar once daily alcohol swabs Pads, Medicated 1 pad topical DIRECTED Qty: 200 12RF Rx Instructions: Use as directed to clean skin prior to finger stick or medication injection empagliflozin 25 mg tablet 25 mg PO DAILY 90 Days Qty: 90 2RF (DME) lancets Misc See Rx Instructions .ROUTE .MEDSUPPLY Qty: 100 11RF Rx Instructions: For use with glucose meter, brand/type per insurance potassium chloride 8 mEq tablet extended release 8 meq PO DAILY 90 Days Qty: 90 3RF cholecalciferol (vitamin D3) [Vitamin D3] 25 mcg (1,000 unit) Tablet 25 mcg PO DAILY Changed furosemide 40 mg tablet 40 mg PO DAILY 30 Days Qty: 30 0RF Rx Instructions: 40 mg orally; Discontinued metformin 1,000 mg tablet 1,000 mg PO BID 90 Days Qty: 180 2RF hydrochlorothiazide 25 mg tablet 25 mg PO QAM 90 Days Qty: 90 2RF glimepiride 4 mg tablet 4 mg PO BID 90 Days Qty: 180 2RF Discharge Orders: Discharge Order (Routine); Ordered 11/28/24 Ordered By: Hemant Stephenson Referrals: Jenelle Tolentino MD [Physician] - 12/07/24 2:30 pm (Please keep your scheduled appointment with Dr. Tolentino. Thank you! ) Audra Hillman MD [Primary Care Provider] - 12/04/24 10:45 am Discharge Diet: Diabetic Discharge Activity: Resume usual activity Patient Instructions: Metoprolol (By mouth) (Lopressor, Toprol XL), Atorvastatin (By mouth), Insulin Aspart, Recombinant (By injection) (Novolog, Novolog..., Chest Pain (DC), Acute Kidney Injury (DC), Hyperlipidemia (DC), CHF Stoplight, Chest Pain Stoplight, Opioid Safety Activity Restrictions/Additional Instructions: - If you have recurrent chest pain please go to the emergency room -I have stopped her metformin due to your GFR being 25, -In addition have stopped her glimepiride as there is high risk of hypoglycemia at your current dose -I am going to continue Jardiance but monitor closely for adverse side effects -Discharged on insulin sliding scale -Please monitor your blood sugars closely -Monitor your blood sugars 3 times daily as after meals -Please record your blood sugars, and a blood sugar log -For your NovoLog -Please inject blood sugar after meals based on sliding scale provided -Do not inject insulin if you do not eat as hypoglycemia kills -This is a NovoLog sliding scale -Insulin sliding ?fingerstick? Insulin ?141-180?0 units/sq 181-220?2 units/sq ?221-260?4 units/sq ?261-300 6 units/sq ?301-350?8 units/sq ?351-400 10 units/sq ?401-450?12 units/sq >450? 14units/sq -If your blood sugar is greater than 500 go to the emergency room -If your blood sugar is less than 60 or at anytime you feel lightheaded or dizzy or diaphoretic or have chest palpitations check your blood sugar, and eat a hard candy or drink orange juice and go immediately to the emergency room -Remember hypoglycemia kills, so if his blood sugar is less than 60 we have to increase it by taking in a sugary meal such as a hard candy or orange juice and go to the emergency room -If you have any questions please call us where here to help Discharge Attestations Time Spent in Discharge Care*: greater than 30 min Quality Metrics Clinical Quality Measures [ No reported AMI, CVA or VTE this stay] Coding Level of Care Code 12154 Total time (in minutes) for Discharge: 45 Diagnoses NSTEMI (non-ST elevated myocardial infarction) I21.4 Essential hypertension I10 Hypertension type: essential hypertension Other congestive heart failure I50.9 Heart failure type: other
[2024-11-28 12:33] VITALS: BP 128/65; PULSE 64; RESP 18; O2SAT 94
--- NOTE | 2024-11-28 13:58 | PC.NURSE ---
discharge instructions given and explained.pt verb understanding of instructions.discharged via w/c to exit at this time.brother to drive pt home
== END 2024-11-28 13:59 | disposition home or self-care (01) | DRG 281 ==
LOC: ER 15:17 → CSU 16:44
PROVIDERS: Admitting Provider Family Medicine; Emergency Provider Emergency Medicine; PCP Family Medicine; Visit Provider Family Medicine
DX: I21.4 Non-ST elevation (NSTEMI) myocardial infarction (principal); I13.0 Hypertensive heart and chronic kidney disease with heart failure and stage 1 through stage 4 chronic kidney disease, or unspecified chronic kidney disease; N17.9 Acute kidney failure, unspecified; E11.22 Type 2 diabetes mellitus with diabetic chronic kidney disease; N18.31 Chronic kidney disease, stage 3a; I50.9 Heart failure, unspecified; Z79.84 Long term (current) use of oral hypoglycemic drugs; I25.10 Atherosclerotic heart disease of native coronary artery without angina pectoris; E78.5 Hyperlipidemia, unspecified; Z79.82 Long term (current) use of aspirin
CPT/HCPCS: 36415; 36416; 71045; 76770; 78452; 80048; 80053; 80061; 81003; 82962; 83036; 83735; 83880; 84100; 84145; 84443; 84484; 85025; 85610; 85730; 93005; 93017; 93306; 94664; 96365; 96366; 96372; 96375; 96376; 97116; 97161; 99285; A9270; A9500; J1644; J1815; J2270; J2405; J2470; J2785; J7030

== ENCOUNTER → 2025-03-15 13:46 | Outpatient (BNVA) | payer MEDICARE, SELFPAY | PROVIDERS: PCP Family Medicine; Referring Provider Family Medicine; Visit Provider Family Medicine | DX: M17.11 Unilateral primary osteoarthritis, right knee (principal) | CPT/HCPCS: 73562 ==

== ENCOUNTER → 2025-03-28 14:10 | Outpatient (BNVA) | payer MEDICARE, SELFPAY | PROVIDERS: PCP Family Medicine; Visit Provider Family Medicine | DX: E11.59 Type 2 diabetes mellitus with other circulatory complications (principal); I10 Essential (primary) hypertension; I50.9 Heart failure, unspecified; N18.31 Chronic kidney disease, stage 3a | CPT/HCPCS: 80048; 83036 ==

== ENCOUNTER → 2025-04-02 14:28 | Outpatient (BNVA) | payer MEDICARE, SELFPAY | PROVIDERS: PCP Family Medicine; Visit Provider Specialist | DX: M17.11 Unilateral primary osteoarthritis, right knee (principal) | CPT/HCPCS: 73560; 73565; 99205 ==

== ENCOUNTER → 2025-09-25 14:25 | Outpatient (BNVA) | payer MEDICARE, SELFPAY | PROVIDERS: PCP Family Medicine; Visit Provider Family Medicine | DX: I10 Essential (primary) hypertension (principal); E78.1 Pure hyperglyceridemia; E11.59 Type 2 diabetes mellitus with other circulatory complications | CPT/HCPCS: 80048; 80061; 83036 ==